=== PATIENT | male | born 1995 | race Caucasian/White ===

== ENCOUNTER 2017-06-05 18:00 | Emergency (ER) | payer BC ==
[2017-06-05 18:22] VITALS: BP 137/64
--- NOTE | 2017-06-05 19:26 | EDM.PDOC ---
ED HPI GENERAL MEDICAL PROBLEM - General Chief Complaint: Lower Extremity Injury/Pain Stated Complaint: L KNEE INJURY Time Seen by Provider: 06/05/17 18:40 Source of Information: Reports: Patient History Limitations: Reports: No Limitations - History of Present Illness INITIAL COMMENTS - FREE TEXT/NARRATIVE: 21-year-old male presents for evaluation andtreatment of left knee pain. Reports that this occurred around 0500 this morning. States that it was slippery and he fell. Assessment he fell down 15 steps and landed on his left knee. Does not recall hearing a sound such as popping or snapping. Since then he has been having pain with ambulation. Identifies pain behind the left patella. No history of any previous knee trauma. No head trauma or syncope. No headaches, neck pain, vision changes, nausea or vomiting. No other pains any other extremities. Left Knee Pain Score (Numeric/FACES): 8 - Related Data Allergies Allergy/AdvReac Type Severity Reaction Status Date / Time peaches Allergy Swelling Uncoded 06/05/17 18:18 Home Meds: Home Meds . 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 Denies: Neck Pain, Arm Pain, Back Pain, Leg Pain Skin: Denies: Bruising, Erythema, Wound Neurological: Denies: Headache, Numbness, Syncope, Tingling ED EXAM, GENERAL - Physical Exam Exam: See Below Exam Limited By: No Limitations General Appearance: Alert, WD/WN, No Apparent Distress Eye Exam: Bilateral Eye: Normal Inspection, PERRL Nose: Normal Inspection Throat/Mouth: Normal Inspection, Normal Lips, Normal Oropharynx, Normal Voice, No Airway Compromise Head: Atraumatic, Normocephalic Neck: Normal Inspection, Supple, Non-Tender, Full Range of Motion Respiratory/Chest: No Respiratory Distress, Lungs Clear, Normal Breath Sounds Cardiovascular: Normal Peripheral Pulses, Regular Rate, Rhythm, No Murmur Extremities: Normal Inspection, Normal Capillary Refill, Limited Range of Motion (unable to flex more than 90 degrees due to pain), Increased Warmth, Other (idenitifies pain behind the left patella; no tenderness to palpation, negative anterior drawer, posterior drawer, valgus and varus stress testing). No: Joint Swelling, Redness Neurological: Alert, Oriented, Normal Cognition, Normal Gait Psychiatric: Normal Affect, Normal Mood Skin Exam: Warm, Dry, Normal Color Course - Vital Signs Last Recorded V/S: Last Vital Signs Temp 36.1 C 06/05/17 18:19 Pulse 87 06/05/17 18:19 Resp 15 06/05/17 18:19 BP 137/64 06/05/17 18:19 Pulse Ox 98 06/05/17 18:19 - Radiology Interpretation Free Text/Narrative:: left knee xray reviewed by myself and DR. Wallace shows no acute fractures or dislocations - Re-Assessments/Exams Free Text/Narrative Re-Assessment/Exam: 06/05/17 20:25 I reviewed the x-ray results with the patient. Recommend ice, Richie bandage as needed for swelling, Tylenol and Motrin. I did offer him some crutches but he declined. Appears to be soft tissue injury. Instructed to follow-up with orthopedics if not much better. Discharge instructions as documented. Departure - Departure Time of Disposition: 20:27 Disposition: Home, Self-Care 01 Condition: Fair Clinical Impression: Knee contusion - Discharge Information Instructions: Contusion, [id number] Referrals: PCP,None [Primary Care Provider] - Reji Gifford MD [Physician] - Forms: ED Department Discharge Additional Instructions: Recommend using ice to the sore area. [id number] Tylenol Motrin seen for pain relief. Use an Richie bandage to the knee if you experience any swelling. Follow-up with orthopedics if your symptoms have not improved much within [address] Epstein at the [facility]. Call [phone] to schedule with him. Please return to the ER if your symptoms change or worsen.
--- NOTE | 2017-06-06 08:30 | CR ---
Left knee: Four views of the left knee were obtained. Comparison: No previous study. Medial and lateral joint spaces are maintained in height. No joint effusion is seen. No fracture or other bony abnormality is seen. Impression: 1. No abnormality is identified on left knee exam. Diagnostic code #1
== END 2017-06-05 20:35 | disposition home or self-care (01) ==
LOC: JD.ED 18:00
DX: S80.02XA Contusion of left knee, initial encounter (principal); F17.210 Nicotine dependence, cigarettes, uncomplicated; Z91.018 Allergy to other foods; W10.9XXA Fall (on) (from) unspecified stairs and steps, initial encounter
CPT/HCPCS: 73564-26-LT; 73564-LT; 99283

== ENCOUNTER 2017-06-08 14:28 | Inpatient (IN) | payer BC ==
[2017-06-08 15:44] LABS: ACETAMINOPHEN 0 ug/mL (10-30)
[2017-06-08] MEDS ORDERED: Acetylcysteine 20% 200 MG/ML 30 ML SDV IV ONE (15:46)
--- NOTE | 2017-06-08 15:58 | EDM.PDOC ---
ED HPI GENERAL MEDICAL PROBLEM - General Chief Complaint: Abdominal Pain Stated Complaint: ABDOMINAL PAIN Time Seen by Provider: 06/08/17 14:56 Source of Information: Reports: Patient History Limitations: Reports: No Limitations - History of Present Illness INITIAL COMMENTS - FREE TEXT/NARRATIVE: 21 y/o M with RUQ pain x 2-3 days. States it started gradually. Denies provoking factors. States he had been taking some tylenol for a leg injury but denies taking an excessive amount. States he was taking 1-2 tabs ever 6 hours. Denies any overdose. Denies IV drug use. Denies excessive ETOH use. No fever. No vomiting. Mild nausea. No cough/CP. No SOB. No hx similar symptoms previously. No additional complaint. Right Upper Abdominal Pain Score (Numeric/FACES): 4 - Related Data Allergies Allergy/AdvReac Type Severity Reaction Status Date / Time peaches Allergy Swelling Uncoded 06/08/17 14:43 Home Meds: Home Meds . 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 Denies: Fever HEENT: Reports: No Symptoms Respiratory: Denies: Shortness of Breath Cardiovascular: Denies: Chest Pain Endocrine: Reports: Fatigue GI/Abdominal: Reports: Abdominal Pain : Reports: No Symptoms Musculoskeletal: Reports: No Symptoms Skin: Reports: No Symptoms Neurological: Reports: No Symptoms Psychiatric: Reports: No Symptoms ED EXAM, GI/ABD - Physical Exam Exam: See Below Exam Limited By: No Limitations General Appearance: Alert, WD/WN, No Apparent Distress Eyes: Bilateral: Normal Appearance Ears: Normal External Exam Nose: Normal Inspection Throat/Mouth: Normal Inspection, Normal Oropharynx, Normal Voice Head: Atraumatic, Normocephalic Neck: Normal Inspection, Supple, Non-Tender, Full Range of Motion Respiratory/Chest: No Respiratory Distress, Lungs Clear, Normal Breath Sounds, Chest Non-Tender Cardiovascular: Normal Peripheral Pulses, Regular Rate, Rhythm, No Edema, No Murmur GI/Abdominal Exam: Normal Bowel Sounds, Soft, Other (+RUQ TTP , no rebound/ guarding) Back Exam: Normal Inspection Extremities: Normal Inspection Neurological: Alert, Oriented, Normal Cognition, No Motor/Sensory Deficits Psychiatric: Normal Affect, Normal Mood Skin Exam: Warm, Dry, Intact, Normal Color, No Rash Course - Vital Signs Last Recorded V/S: Last Vital Signs Temp 37.4 C 06/08/17 18:09 Pulse 106 H 06/08/17 18:09 Resp 16 06/08/17 18:09 BP 132/81 06/08/17 18:09 Pulse Ox 95 06/08/17 19:05 - Orders/Labs/Meds Orders: Active Orders 24 hr Category Date Time Status Height and Weight [RC] DAILY Care 06/08/17 17:32 Active Intake and Output [RC] 04,16 Care 06/08/17 17:32 Active Oxygen Therapy [RC] PRN Care 06/08/17 17:32 Active RT Aerosol Therapy [RC] ASDIRECTED Care 06/08/17 17:33 Active Up ad Eunice [RC] ASDIRECTED Care 06/08/17 17:32 Active VTE/DVT Education [RC] BID Care 06/08/17 17:32 Active Vital Signs [RC] Q4HR Care 06/08/17 17:32 Active Consult to Spiritual Care [CONS] Routine Cons 06/08/17 17:34 Active Regular Diet [DIET] Diet 06/08/17 Dinner Active C-REACTIVE PROTEIN [CHEM] AM Lab 06/09/17 05:11 Ordered C-REACTIVE PROTEIN [CHEM] AM Lab 06/10/17 05:11 Ordered C-REACTIVE PROTEIN [CHEM] AM Lab 06/11/17 05:11 Ordered CBC WITH AUTO DIFF [HEME] AM Lab 06/09/17 05:11 Ordered CBC WITH AUTO DIFF [HEME] AM Lab 06/10/17 05:11 Ordered COMPREHENSIVE METABOLIC PN,CMP [CHEM] AM Lab 06/09/17 05:11 Ordered COMPREHENSIVE METABOLIC PN,CMP [CHEM] AM Lab 06/10/17 05:11 Ordered COMPREHENSIVE METABOLIC PN,CMP [CHEM] AM Lab 06/11/17 05:11 Ordered DRUG SCREEN, URINE [URCHEM] Stat Lab 06/08/17 15:11 Ordered HEPATITIS PANEL, ACUTE [REF] Stat Lab 06/08/17 16:10 Received MAGNESIUM [CHEM] AM Lab 06/09/17 05:11 Ordered MAGNESIUM [CHEM] AM Lab 06/10/17 05:11 Ordered MAGNESIUM [CHEM] AM Lab 06/11/17 05:11 Ordered Albuterol/Ipratropium [DuoNeb 3.0-0.5 MG/3 ML] Med 06/08/17 17:32 Active 3 ml NEB Q4H PRN Bisacodyl [Dulcolax] Med 06/08/17 17:32 Active 5 mg PO DAILY PRN Docusate Sodium [Colace] Med 06/08/17 17:32 Active 100 mg PO BID PRN Docusate Sodium/Sennosides [Senna Plus] Med 06/08/17 17:32 Active 1 tab PO BID PRN HYDROmorphone [Dilaudid] Med 06/08/17 17:32 Active 0.25 mg IVPUSH Q2H PRN Ibuprofen [Motrin] Med 06/08/17 17:32 Active 600 mg PO Q6H PRN LORazepam [Ativan] Med 06/08/17 17:31 Active 2 mg IVPUSH Q4H PRN Magnesium Rep Pharmacy to Dose [Pharmacy to Dose - Med 06/08/17 17:45 Pending Magnesium Replacement] 1 dose .XX ASDIRECTED Metoprolol Tartrate [Lopressor] Med 06/08/17 17:31 Active 5 mg IVPUSH Q4H PRN Nicotine [Habitrol] Med 06/08/17 17:35 Active 21 mg TRDERM DAILY PRN Ondansetron [Zofran] Med 06/08/17 17:32 Active 4 mg IV Q6H PRN Polyethylene Glycol 3350 [MiraLAX] Med 06/08/17 17:32 Active 17 gm PO DAILY PRN Potassium Rep Pharmacy to Dose [Pharmacy to Dose - Med 06/08/17 17:45 Pending Potassium Replacement] 1 dose .XX ASDIRECTED Promethazine [Phenergan] 12.5 mg Med 06/08/17 17:32 Active Sodium Chloride 0.9% [Normal Saline] 50 ml IV Q6H Sodium Chloride 0.9% [Normal Saline] 1,000 ml Med 06/08/17 17:45 Active IV ASDIRECTED Temazepam [Restoril] Med 06/08/17 17:32 Active 15 mg PO BEDTIME PRN hydrALAZINE [Apresoline] Med 06/08/17 17:31 Active 20 mg IVPUSH Q4H PRN oxyCODONE Med 06/08/17 17:32 Active 10 mg PO Q4H PRN Sequential Compression Device [OM.PC] Per Unit Routine Oth 06/08/17 17:32 Ordered Resuscitation Status Routine Resus Stat 06/08/17 17:32 Ordered Medication Orders Albuterol/Ipratropium (Duoneb 3.0-0.5 Mg/3 Ml) 3 ml NEB Q4H PRN PRN Reason: Shortness Of Breath/wheezing Bisacodyl (Dulcolax) 5 mg PO DAILY PRN PRN Reason: Constipation Docusate Sodium (Colace) 100 mg PO BID PRN PRN Reason: Constipation Hydralazine HCl (Apresoline) 20 mg IVPUSH Q4H PRN PRN Reason: Hypertension Hydromorphone HCl (Dilaudid) 0.25 mg IVPUSH Q2H PRN PRN Reason: Pain (severe 7-10) Promethazine HCl 12.5 mg/ (Sodium Chloride) 50.5 mls @ 100 mls/hr IV Q6H PRN PRN Reason: Nausea/Vomiting Sodium Chloride (Normal Saline) 1,000 mls @ 125 mls/hr IV ASDIRECTED [facility] Ibuprofen (Motrin) 600 mg PO Q6H PRN PRN Reason: Pain (moderate 4-6) Lorazepam (Ativan) 2 mg IVPUSH Q4H PRN PRN Reason: Seizures Magnesium Sulfate (Pharmacy To Dose - Magnesium Replacement) 1 dose .XX ASDIRECTED FOR[facility] Metoprolol Tartrate (Lopressor) 5 mg IVPUSH Q4H PRN PRN Reason: Tachycardia Miscellaneous Information (Remove Patch) 1 ea TRDERM DAILY PRN PRN Reason: Other Nicotine (Habitrol) 21 mg TRDERM DAILY PRN PRN Reason: Nicotine Ondansetron HCl (Zofran) 4 mg IV Q6H PRN PRN Reason: Nausea/Vomiting Oxycodone HCl (Oxycodone) 10 mg PO Q4H PRN PRN Reason: Pain (moderate 4-6) Polyethylene Glycol (Miralax) 17 gm PO DAILY PRN PRN Reason: Constipation Potassium Chloride (Pharmacy To Dose - Potassium Replacement) 1 dose .XX ASDIRECTED KLAUDIA Senna/Docusate Sodium (Senna Plus) 1 tab PO BID PRN PRN Reason: Constipation Temazepam (Restoril) 15 mg PO BEDTIME PRN PRN Reason: Sleep Labs: Laboratory Tests 06/08/17 06/08/17 06/08/17 Range/Units 15:11 15:11 15:11 WBC 11.49 H (4.23-9.07) K/mm3 RBC 5.82 (4.63-6.08) M/mm3 Hgb 17.8 H (13.7-17.5) gm/L Hct 52.3 H (40.1-51.0) % MCV 89.9 (79.0-92.2) fl MCH 30.6 (25.7-32.2) pg MCHC 34.0 (32.2-35.5) g/dl RDW Std Deviation 46.1 H (35.1-43.9) fL Plt Count 286 (163-337) K/mm3 MPV 10.3 (9.4-12.3) fl Neut % (Auto) 80.8 H (34.0-67.9) % Lymph % (Auto) 8.5 L (21.8-53.1) % [place] % (Auto) 9.2 (5.3-12.2) % Eos % (Auto) 0.8 (0.8-7.0) Baso % (Auto) 0.4 (0.1-1.2) % Neut # (Auto) 9.28 H (1.78-5.38) K/mm3 Lymph # (Auto) 0.98 L (1.32-3.57) K/mm3 [place] # (Auto) 1.06 H (0.30-0.82) K/mm3 Eos # (Auto) 0.09 (0.04-0.54) K/mm3 Baso # (Auto) 0.05 (0.01-0.08) K/mm3 Manual Slide Review Normal smear PT (8.0-13.0) SECONDS INR Sodium 136 (136-145) mEq/L Potassium 4.2 (3.5-5.1) mEq/L Chloride 99 (98-107) mEq/L Carbon Dioxide 26 (21-32) mEq/L Anion Gap 15.2 H (5-15) BUN 5 L (7-18) mg/dL Creatinine 0.9 (0.7-1.3) mg/dL Est Cr Clr Drug Dosing 142.51 mL/min Estimated GFR (MDRD) > 60 (>60) mL/min BUN/Creatinine Ratio 5.6 L (14-18) Glucose 110 H (74-106) mg/dL Calcium 9.3 (8.5-10.1) mg/dL Total Bilirubin 2.4 H (0.2-1.0) mg/dL GGT (15-85) U/L AST 1974 H (15-37) U/L ALT 1959 H (16-63) U/L Alkaline Phosphatase 111 (46-116) U/L Total Protein 7.7 (6.4-8.2) g/dl Albumin 4.2 (3.4-5.0) g/dl Globulin 3.5 gm/dL Albumin/Globulin Ratio 1.2 (1-2) Lipase 56 L (73-393) U/L Urine Color (Yellow) Urine Appearance (Clear) Urine pH (5.0-8.0) Ur Specific [place] (1.005-1.030) Urine Protein (Negative) Urine Glucose (UA) (Negative) Urine Ketones (Negative) Urine Occult Blood (Negative) Urine Nitrite (Negative) Urine Bilirubin (Negative) Urine Urobilinogen (0.2-1.0) Ur Leukocyte Esterase (Negative) Urine RBC (0-5) /hpf Urine WBC (0-5) /hpf Ur Epithelial Cells (0-5) /hpf Urine Bacteria (FEW) /hpf Urine Mucus (FEW) /hpf Salicylates < 0.2 L (2.8-20) mg/dL Urine Opiates Screen (NEGATIVE) Ur Buprenorphine Scrn (NEGATIVE) Ur Oxycodone Screen (NEGATIVE) Urine Methadone Screen (NEGATIVE) Ur Propoxyphene Screen (NEGATIVE) Acetaminophen 0 L (10-30) ug/mL Ur Barbiturates Screen (NEGATIVE) Ur Tricyclics Screen (NEGATIVE) Ur Phencyclidine Scrn (NEGATIVE) Ur Amphetamine Screen (NEGATIVE) U Methamphetamines Scrn (NEGATIVE) U Benzodiazepines Scrn (NEGATIVE) U Cocaine Metab Screen (NEGATIVE) U Marijuana (THC) Screen (NEGATIVE) Ethyl Alcohol (0.00) gm% 06/08/17 06/08/17 06/08/17 Range/Units 15:11 15:11 15:11 WBC (4.23-9.07) K/mm3 RBC (4.63-6.08) M/mm3 Hgb (13.7-17.5) gm/L Hct (40.1-51.0) % MCV (79.0-92.2) fl MCH (25.7-32.2) pg MCHC (32.2-35.5) g/dl RDW Std Deviation (35.1-43.9) fL Plt Count (163-337) K/mm3 MPV (9.4-12.3) fl Neut % (Auto) (34.0-67.9) % Lymph % (Auto) (21.8-53.1) % [place] % (Auto) (5.3-12.2) % Eos % (Auto) (0.8-7.0) Baso % (Auto) (0.1-1.2) % Neut # (Auto) (1.78-5.38) K/mm3 Lymph # (Auto) (1.32-3.57) K/mm3 [place] # (Auto) (0.30-0.82) K/mm3 Eos # (Auto) (0.04-0.54) K/mm3 Baso # (Auto) (0.01-0.08) K/mm3 Manual Slide Review PT (8.0-13.0) SECONDS INR Sodium (136-145) mEq/L Potassium (3.5-5.1) mEq/L Chloride (98-107) mEq/L Carbon Dioxide (21-32) mEq/L Anion Gap (5-15) BUN (7-18) mg/dL Creatinine (0.7-1.3) mg/dL Est Cr Clr Drug Dosing mL/min Estimated GFR (MDRD) (>60) mL/min BUN/Creatinine Ratio (14-18) Glucose (74-106) mg/dL Calcium (8.5-10.1) mg/dL Total Bilirubin (0.2-1.0) mg/dL GGT (15-85) U/L AST (15-37) U/L ALT (16-63) U/L Alkaline Phosphatase (46-116) U/L Total Protein (6.4-8.2) g/dl Albumin (3.4-5.0) g/dl Globulin gm/dL Albumin/Globulin Ratio (1-2) Lipase (73-393) U/L Urine Color Dark yellow (Yellow) Urine Appearance Clear (Clear) Urine pH 6.5 (5.0-8.0) Ur Specific [place] > or = 1.030 (1.005-1.030) Urine Protein 2+ H (Negative) Urine Glucose (UA) Negative (Negative) Urine Ketones Negative (Negative) Urine Occult Blood Trace-lysed H (Negative) Urine Nitrite Negative (Negative) Urine Bilirubin 1+ H (Negative) Urine Urobilinogen 4.0 H (0.2-1.0) Ur Leukocyte Esterase Negative (Negative) Urine RBC 0-5 (0-5) /hpf Urine WBC 5-10 H (0-5) /hpf Ur Epithelial Cells 5-10 H (0-5) /hpf Urine Bacteria Few (FEW) /hpf Urine Mucus Many H (FEW) /hpf Salicylates (2.8-20) mg/dL Urine Opiates Screen Negative (NEGATIVE) Ur Buprenorphine Scrn Negative (NEGATIVE) Ur Oxycodone Screen Negative (NEGATIVE) Urine Methadone Screen Negative (NEGATIVE) Ur Propoxyphene Screen Negative (NEGATIVE) Acetaminophen (10-30) ug/mL Ur Barbiturates Screen Negative (NEGATIVE) Ur Tricyclics Screen Negative (NEGATIVE) Ur Phencyclidine Scrn Negative (NEGATIVE) Ur Amphetamine Screen Negative (NEGATIVE) U Methamphetamines Scrn Negative (NEGATIVE) U Benzodiazepines Scrn Presumptive positive H (NEGATIVE) U Cocaine Metab Screen Negative (NEGATIVE) U Marijuana (THC) Screen Negative (NEGATIVE) Ethyl Alcohol 0.00 (0.00) gm% 06/08/17 06/08/17 Range/Units 16:10 17:15 WBC (4.23-9.07) K/mm3 RBC (4.63-6.08) M/mm3 Hgb (13.7-17.5) gm/L Hct (40.1-51.0) % MCV (79.0-92.2) fl MCH (25.7-32.2) pg MCHC (32.2-35.5) g/dl RDW Std Deviation (35.1-43.9) fL Plt Count (163-337) K/mm3 MPV (9.4-12.3) fl Neut % (Auto) (34.0-67.9) % Lymph % (Auto) (21.8-53.1) % [place] % (Auto) (5.3-12.2) % Eos % (Auto) (0.8-7.0) Baso % (Auto) (0.1-1.2) % Neut # (Auto) (1.78-5.38) K/mm3 Lymph # (Auto) (1.32-3.57) K/mm3 [place] # (Auto) (0.30-0.82) K/mm3 Eos # (Auto) (0.04-0.54) K/mm3 Baso # (Auto) (0.01-0.08) K/mm3 Manual Slide Review PT 13.6 H (8.0-13.0) SECONDS INR 1.27 Sodium (136-145) mEq/L Potassium (3.5-5.1) mEq/L Chloride (98-107) mEq/L Carbon Dioxide (21-32) mEq/L Anion Gap (5-15) BUN (7-18) mg/dL Creatinine (0.7-1.3) mg/dL Est Cr Clr Drug Dosing mL/min Estimated GFR (MDRD) (>60) mL/min BUN/Creatinine Ratio (14-18) Glucose (74-106) mg/dL Calcium (8.5-10.1) mg/dL Total Bilirubin (0.2-1.0) mg/dL GGT 65 (15-85) U/L AST (15-37) U/L ALT (16-63) U/L Alkaline Phosphatase (46-116) U/L Total Protein (6.4-8.2) g/dl Albumin (3.4-5.0) g/dl Globulin gm/dL Albumin/Globulin Ratio (1-2) Lipase (73-393) U/L Urine Color (Yellow) Urine Appearance (Clear) Urine pH (5.0-8.0) Ur Specific [place] (1.005-1.030) Urine Protein (Negative) Urine Glucose (UA) (Negative) Urine Ketones (Negative) Urine Occult Blood (Negative) Urine Nitrite (Negative) Urine Bilirubin (Negative) Urine Urobilinogen (0.2-1.0) Ur Leukocyte Esterase (Negative) Urine RBC (0-5) /hpf Urine WBC (0-5) /hpf Ur Epithelial Cells (0-5) /hpf Urine Bacteria (FEW) /hpf Urine Mucus (FEW) /hpf Salicylates (2.8-20) mg/dL Urine Opiates Screen (NEGATIVE) Ur Buprenorphine Scrn (NEGATIVE) Ur Oxycodone Screen (NEGATIVE) Urine Methadone Screen (NEGATIVE) Ur Propoxyphene Screen (NEGATIVE) Acetaminophen (10-30) ug/mL Ur Barbiturates Screen (NEGATIVE) Ur Tricyclics Screen (NEGATIVE) Ur Phencyclidine Scrn (NEGATIVE) Ur Amphetamine Screen (NEGATIVE) U Methamphetamines Scrn (NEGATIVE) U Benzodiazepines Scrn (NEGATIVE) U Cocaine Metab Screen (NEGATIVE) U Marijuana (THC) Screen (NEGATIVE) Ethyl Alcohol (0.00) gm% Meds: Medications Generic Name Dose Route Start Last Admin Trade Name Freq PRN Reason Stop Dose Admin Albuterol/Ipratropium 3 ml 06/08/17 17:32 Duoneb 3.0-0.5 Mg/3 Ml NEB Q4H PRN Shortness Of Breath/wheezing Bisacodyl 5 mg 06/08/17 17:32 Dulcolax PO DAILY PRN Constipation Docusate Sodium 100 mg 06/08/17 17:32 Colace PO BID PRN Constipation Hydralazine HCl 20 mg 06/08/17 17:31 Apresoline IVPUSH Q4H PRN Hypertension Hydromorphone HCl 0.25 mg 06/08/17 17:32 Dilaudid IVPUSH Q2H PRN Pain (severe 7-10) Promethazine HCl 12.5 mg/ 50.5 mls @ 100 mls/hr 06/08/17 17:32 Sodium Chloride IV Q6H PRN Nausea/Vomiting Sodium Chloride 1,000 mls @ 125 mls/hr 06/08/17 17:45 Normal Saline IV ASDIRECTED KLAUDIA Ibuprofen 600 mg 06/08/17 17:32 Motrin PO Q6H PRN Pain (moderate 4-6) Lorazepam 2 mg 06/08/17 17:31 Ativan IVPUSH Q4H PRN Seizures Magnesium Sulfate 1 dose 06/08/17 17:45 Pharmacy To Dose - Magnesium Replacement .XX ASDIRECTED FOR[facility]LY [facility] Metoprolol Tartrate 5 mg 06/08/17 17:31 Lopressor IVPUSH Q4H PRN Tachycardia Miscellaneous Information 1 ea 06/08/17 17:43 Remove Patch TRDERM DAILY PRN Other Nicotine 21 mg 06/08/17 17:35 Habitrol TRDERM DAILY PRN Nicotine Ondansetron HCl 4 mg 06/08/17 17:32 Zofran IV Q6H PRN Nausea/Vomiting Oxycodone HCl 10 mg 06/08/17 17:32 Oxycodone PO Q4H PRN Pain (moderate 4-6) Polyethylene Glycol 17 gm 06/08/17 17:32 Miralax PO DAILY PRN Constipation Potassium Chloride 1 dose 06/08/17 17:45 Pharmacy To Dose - Potassium Replacement .XX ASDIRECTED FOR[facility] Senna/Docusate Sodium 1 tab 06/08/17 17:32 Senna Plus PO BID PRN Constipation Temazepam 15 mg 06/08/17 17:32 Restoril PO BEDTIME PRN Sleep Discontinued Medications Generic Name Dose Route Start Last Admin Trade Name Freq PRN Reason Stop Dose Admin Acetylcysteine 12,240 mg/ 161.2 mls @ 161 mls/hr 06/08/17 16:00 Dextrose/Water IV 06/08/17 17:00 ONETIME ONE Pantoprazole Sodium 40 mg 06/08/17 17:32 Protonix Iv IVPUSH 06/08/17 17:33 ONETIME ONE - Re-Assessments/Exams Free Text/Narrative Re-Assessment/Exam: 06/08/17 19:31 Labs consistent with acute hepatitis, source unclear. viral studies sent. Discussed with Dr. Edmonds who agrees to admit the patient for further care. Departure - Departure Time of Disposition: 17:50 Disposition: Admitted As Inpatient 66 Clinical Impression: Acute hepatitis - Discharge Information - My Orders Last 24 Hours: My Active Orders 06/08/17 15:11 DRUG SCREEN, URINE [URCHEM] Stat 06/08/17 16:10 HEPATITIS PANEL, ACUTE [REF] Stat - Assessment/Plan Last 24 Hours: My Active Orders 06/08/17 15:11 DRUG SCREEN, URINE [URCHEM] Stat 06/08/17 16:10 HEPATITIS PANEL, ACUTE [REF] Stat
[2017-06-08] MEDS ORDERED: WATER IV ONE ×2 (16:00)
[2017-06-08] MEDS ORDERED: ACETYLCYSTEINE IV ONE ×2 (16:00)
[2017-06-08] MEDS ORDERED: DEXTROSE 5% IV ONE ×2 (16:00)
--- NOTE | 2017-06-08 16:41 | US ---
Limited abdominal ultrasound: Multiple real-time images of the right upper abdomen were obtained. Comparison: No previous abdominal imaging. Liver shows no focal parenchymal abnormality. Right kidney shows no hydronephrosis or mass and has a length of 11.0 cm. Pancreas appears within normal limits. Gallbladder contains no gallstones. No gallbladder wall thickening or biliary duct dilatation is seen. Inferior vena cava is patent. Portal vein shows normal hepatopedal flow. Impression: 1. No abnormality is identified on right upper quadrant abdominal ultrasound exam. Diagnostic code #1
[2017-06-08] MEDS ORDERED: LORazepam 2 MG/ML SDV IVPUSH PRN (17:31)
[2017-06-08] MEDS ORDERED: Metoprolol Tartrate 5 MG/5 ML SDV IVPUSH PRN (17:31)
[2017-06-08] MEDS ORDERED: hydrALAZINE 20 MG/ML SDV IVPUSH PRN (17:31)
[2017-06-08] MEDS ORDERED: Ibuprofen 600 MG Tab PO PRN (17:32)
[2017-06-08] MEDS ORDERED: Ondansetron 4 MG/2 ML SDV IV PRN (17:32)
[2017-06-08] MEDS ORDERED: Albuterol/Ipratropium 3.0-0.5 MG/3 ML Neb Soln NEB PRN (17:32)
[2017-06-08] MEDS ORDERED: Bisacodyl 5 MG Tab PO PRN (17:32)
[2017-06-08] MEDS ORDERED: Polyethylene Glycol 3350 Powder 17 GM Packet PO PRN (17:32)
[2017-06-08] MEDS ORDERED: HYDROmorphone 0.5 MG/0.5 ML SYRINGE IVPUSH PRN (17:32)
[2017-06-08] MEDS ORDERED: Promethazine 12.5 MG in Sodium Chloride 0.9% 50 ML IV PRN (17:32)
[2017-06-08] MEDS ORDERED: Temazepam 15 MG Cap PO PRN (17:32)
[2017-06-08] MEDS ORDERED: Docusate Sodium 100 MG Cap PO PRN (17:32)
[2017-06-08] MEDS ORDERED: Pantoprazole 40 MG Vial IVPUSH ONE ×2 (17:32→20:00)
--- NOTE | 2017-06-08 17:39 | PCM.HP ---
H&P History of Present Illness - General Date of Service: 06/08/17 Admit Problem/Dx: Acute Hepatitis Source of Information: Patient, Family, Provider, RN Notes Reviewed History Limitations: Reports: No Limitations - History of Present Illness Initial Comments - Free Text/Narative: This is a 21 yo healthy white male who comes in with complaints of abdominal and was found to have considerably elevated liver enzymes. Patient denies any hx /o trauma, surgery, blood infusion or intravenous drug use. He however admits to having been incarcerated in [place]. Patient repost a hx/o a recent fall suffering left knee abrasion and a small size lesion on his inter-gluteal cleft. Since then he has been taking a good amount of tylenol daily for 3-4 days for pain control. On top it, he is also drinking hard liquor. His initial work up in ED shows a CBC remarkable for WBC of 11.49, Hgb of 17.8, Hct of 52.3, RDW of 46.1, Neutrophils of 60.8%, and Lymphocytes of 8.5%. His coagulation studies show PT of 13.6 and INR of 1.27. His chemistry is remarkable for AG of 15.2, BUN of 5, BS of 110, Total bili of 2.4, AST of 1974, ALT 1959 and Lipase of 56. His UA is suggestive of dehydration with Specific gravity of > or = 1.030, +2 Protein and Urobilinogen of 4.0. His UDS is pos for benzodiazepines. Patient is being admitted for medical management of acute hepatitis. Right Upper Abdominal Pain Score (Numeric/FACES): 4 - Related Data Allergies/Adverse Reactions: Allergies Allergy/AdvReac Type Severity Reaction Status Date / Time peaches Allergy Swelling Uncoded 06/08/17 14:43 Home Medications: Home Meds . [No Known Home Meds] 06/05/17 [History] Past Medical History - Past Health History Medical/Surgical History: Denies Medical/Surgical History Psychiatric History: Reports: Depression - Past Surgical History Musculoskeletal Surgical History: Reports: Other (See Below) Social & Family History - Tobacco Use Smoking Status *Q: Current Every Day Smoker Years of Tobacco use: 5 Packs/Tins Daily: 0.5 - Recreational Drug Use Recreational Drug Use: No Drug Use in Last 12 Months: Yes Recreational Drug Type: Reports: Heroin, Marijuana/Hashish Recreational Drug Use Frequency: Daily Recreational Drug Last Use: 05/26/15 H&P Review of Systems - Review of Systems: Review Of Systems: See Below General: Denies: Fever, Chills, Malaise, Weakness, Fatigue, Night Sweats, Decreased Appetite, Weight Loss HEENT: Reports: No Symptoms Pulmonary: Denies: Shortness of Breath, Wheezing, Pleuritic Chest Pain, Cough, Sputum, Hemoptysis Cardiovascular: Denies: Chest Pain, Dyspnea on Exertion, Lightheadedness, Claudication Gastrointestinal: Denies: Abdominal Pain, Anorexia, Black Stool, Bloody Stool, Constipation, Diarrhea, Decreased Appetite, Difficulty Swallowing, Distension, Flatus, Hematemesis, Hematochezia, Melena, Nausea, Stool Incontinence, Vomiting Musculoskeletal: Reports: No Symptoms. Denies: Muscle Stiffness Skin: Reports: Wound (small size on intergluteal cleft), Other (abrasion on left knee). Denies: Cyanosis, Jaundice, Dryness, Erythema Psychiatric: Denies: Depression, Anxiety, Agitation, Hallucinations, Homicidal Ideation Neurological: Denies: Confusion, Pre-Existing Deficit, Difficulty Walking, Weakness, Gait Disturbance Hematologic/Lymphatic: Reports: No Symptoms Immunologic: Reports: No Symptoms Exam - Exam Exam: See Below - Vital Signs Vital Signs: Last Vital Signs Temp 37.6 C 06/08/17 14:39 Pulse 83 06/08/17 14:39 Resp 17 06/08/17 14:39 BP 131/77 06/08/17 14:39 Pulse Ox 96 06/08/17 14:39 Weight: 81.647 kg - Exam General: Alert, Oriented, Cooperative, Mild Distress HEENT: Conjunctiva Clear, EACs Clear, EOMI, Hearing Intact, Mucosa Moist & [place] , Nares Patent, Normal Nasal Septum, Posterior Pharynx Clear, Pupils Equal, Pupils Reactive Neck: Supple, Trachea Midline Lungs: Clear to Auscultation, Normal Respiratory Effort Cardiovascular: Regular Rate, Regular Rhythm GI/Abdominal Exam: Normal Bowel Sounds, Soft, No Organomegaly, No Distention, No Abnormal Bruit, Tender (mild at right upper quadrant). No: No Mass, Pelvis Stable, Guarding, Rigid, Rebound (Male) Exam: Deferred Rectal (Males) Exam: Deferred Back Exam: Normal Inspection, Full Range of Motion Extremities: Normal Inspection, Normal Range of Motion, Non-Tender, No Pedal Edema, Normal Capillary Refill Peripheral Pulses: 3+: Posterior Tibial (L), Posterior Tibial (R), Dorsalis Pedis (L), Dorsalis Pedis (R) Skin: Warm, Intact, Wound (minute size lesion on upper right buttock ( intergluteal cleft)), Other (multiple tattoos all over his body) Neuro Extensive - Mental Status: Oriented x3, Normal Cognition, Memory Intact Neuro Extensive - Motor, Sensory, Reflexes: CN II-XII Intact, Abnormal Gait Psychiatric: Alert, Normal Affect, Normal Mood - Patient Data Lab Results Last 24 hrs: Laboratory Results - last 24 hr 06/08/17 06/08/17 06/08/17 Range/Units 15:11 15:11 15:11 WBC 11.49 H (4.23-9.07) K/mm3 RBC 5.82 (4.63-6.08) M/mm3 Hgb 17.8 H (13.7-17.5) gm/L Hct 52.3 H (40.1-51.0) % MCV 89.9 (79.0-92.2) fl MCH 30.6 (25.7-32.2) pg MCHC 34.0 (32.2-35.5) g/dl RDW Std Deviation 46.1 H (35.1-43.9) fL Plt Count 286 (163-337) K/mm3 MPV 10.3 (9.4-12.3) fl Neut % (Auto) 80.8 H (34.0-67.9) % Lymph % (Auto) 8.5 L (21.8-53.1) % [place] % (Auto) 9.2 (5.3-12.2) % Eos % (Auto) 0.8 (0.8-7.0) Baso % (Auto) 0.4 (0.1-1.2) % Neut # (Auto) 9.28 H (1.78-5.38) K/mm3 Lymph # (Auto) 0.98 L (1.32-3.57) K/mm3 [place] # (Auto) 1.06 H (0.30-0.82) K/mm3 Eos # (Auto) 0.09 (0.04-0.54) K/mm3 Baso # (Auto) 0.05 (0.01-0.08) K/mm3 Manual Slide Review Normal smear PT (8.0-13.0) SECONDS INR Sodium 136 (136-145) mEq/L Potassium 4.2 (3.5-5.1) mEq/L Chloride 99 (98-107) mEq/L Carbon Dioxide 26 (21-32) mEq/L Anion Gap 15.2 H (5-15) BUN 5 L (7-18) mg/dL Creatinine 0.9 (0.7-1.3) mg/dL Est Cr Clr Drug Dosing 142.51 mL/min Estimated GFR (MDRD) > 60 (>60) mL/min BUN/Creatinine Ratio 5.6 L (14-18) Glucose 110 H (74-106) mg/dL Calcium 9.3 (8.5-10.1) mg/dL Total Bilirubin 2.4 H (0.2-1.0) mg/dL AST 1974 H (15-37) U/L ALT 1959 H (16-63) U/L Alkaline Phosphatase 111 (46-116) U/L Total Protein 7.7 (6.4-8.2) g/dl Albumin 4.2 (3.4-5.0) g/dl Globulin 3.5 gm/dL Albumin/Globulin Ratio 1.2 (1-2) Lipase 56 L (73-393) U/L Urine Color (Yellow) Urine Appearance (Clear) Urine pH (5.0-8.0) Ur Specific [place] (1.005-1.030) Urine Protein (Negative) Urine Glucose (UA) (Negative) Urine Ketones (Negative) Urine Occult Blood (Negative) Urine Nitrite (Negative) Urine Bilirubin (Negative) Urine Urobilinogen (0.2-1.0) Ur Leukocyte Esterase (Negative) Urine RBC (0-5) /hpf Urine WBC (0-5) /hpf Ur Epithelial Cells (0-5) /hpf Urine Bacteria (FEW) /hpf Urine Mucus (FEW) /hpf Salicylates < 0.2 L (2.8-20) mg/dL Urine Opiates Screen (NEGATIVE) Ur Buprenorphine Scrn (NEGATIVE) Ur Oxycodone Screen (NEGATIVE) Urine Methadone Screen (NEGATIVE) Ur Propoxyphene Screen (NEGATIVE) Acetaminophen 0 L (10-30) ug/mL Ur Barbiturates Screen (NEGATIVE) Ur Tricyclics Screen (NEGATIVE) Ur Phencyclidine Scrn (NEGATIVE) Ur Amphetamine Screen (NEGATIVE) U Methamphetamines Scrn (NEGATIVE) U Benzodiazepines Scrn (NEGATIVE) U Cocaine Metab Screen (NEGATIVE) U Marijuana (THC) Screen (NEGATIVE) Ethyl Alcohol (0.00) gm% 06/08/17 06/08/17 06/08/17 Range/Units 15:11 15:11 15:11 WBC (4.23-9.07) K/mm3 RBC (4.63-6.08) M/mm3 Hgb (13.7-17.5) gm/L Hct (40.1-51.0) % MCV (79.0-92.2) fl MCH (25.7-32.2) pg MCHC (32.2-35.5) g/dl RDW Std Deviation (35.1-43.9) fL Plt Count (163-337) K/mm3 MPV (9.4-12.3) fl Neut % (Auto) (34.0-67.9) % Lymph % (Auto) (21.8-53.1) % [place] % (Auto) (5.3-12.2) % Eos % (Auto) (0.8-7.0) Baso % (Auto) (0.1-1.2) % Neut # (Auto) (1.78-5.38) K/mm3 Lymph # (Auto) (1.32-3.57) K/mm3 [place] # (Auto) (0.30-0.82) K/mm3 Eos # (Auto) (0.04-0.54) K/mm3 Baso # (Auto) (0.01-0.08) K/mm3 Manual Slide Review PT (8.0-13.0) SECONDS INR Sodium (136-145) mEq/L Potassium (3.5-5.1) mEq/L Chloride (98-107) mEq/L Carbon Dioxide (21-32) mEq/L Anion Gap (5-15) BUN (7-18) mg/dL Creatinine (0.7-1.3) mg/dL Est Cr Clr Drug Dosing mL/min Estimated GFR (MDRD) (>60) mL/min BUN/Creatinine Ratio (14-18) Glucose (74-106) mg/dL Calcium (8.5-10.1) mg/dL Total Bilirubin (0.2-1.0) mg/dL AST (15-37) U/L ALT (16-63) U/L Alkaline Phosphatase (46-116) U/L Total Protein (6.4-8.2) g/dl Albumin (3.4-5.0) g/dl Globulin gm/dL Albumin/Globulin Ratio (1-2) Lipase (73-393) U/L Urine Color Dark yellow (Yellow) Urine Appearance Clear (Clear) Urine pH 6.5 (5.0-8.0) Ur Specific [place] > or = 1.030 (1.005-1.030) Urine Protein 2+ H (Negative) Urine Glucose (UA) Negative (Negative) Urine Ketones Negative (Negative) Urine Occult Blood Trace-lysed H (Negative) Urine Nitrite Negative (Negative) Urine Bilirubin 1+ H (Negative) Urine Urobilinogen 4.0 H (0.2-1.0) Ur Leukocyte Esterase Negative (Negative) Urine RBC 0-5 (0-5) /hpf Urine WBC 5-10 H (0-5) /hpf Ur Epithelial Cells 5-10 H (0-5) /hpf Urine Bacteria Few (FEW) /hpf Urine Mucus Many H (FEW) /hpf Salicylates (2.8-20) mg/dL Urine Opiates Screen Negative (NEGATIVE) Ur Buprenorphine Scrn Negative (NEGATIVE) Ur Oxycodone Screen Negative (NEGATIVE) Urine Methadone Screen Negative (NEGATIVE) Ur Propoxyphene Screen Negative (NEGATIVE) Acetaminophen (10-30) ug/mL Ur Barbiturates Screen Negative (NEGATIVE) Ur Tricyclics Screen Negative (NEGATIVE) Ur Phencyclidine Scrn Negative (NEGATIVE) Ur Amphetamine Screen Negative (NEGATIVE) U Methamphetamines Scrn Negative (NEGATIVE) U Benzodiazepines Scrn Presumptive positive H (NEGATIVE) U Cocaine Metab Screen Negative (NEGATIVE) U Marijuana (THC) Screen Negative (NEGATIVE) Ethyl Alcohol 0.00 (0.00) gm% 06/08/17 Range/Units 16:10 WBC (4.23-9.07) K/mm3 RBC (4.63-6.08) M/mm3 Hgb (13.7-17.5) gm/L Hct (40.1-51.0) % MCV (79.0-92.2) fl MCH (25.7-32.2) pg MCHC (32.2-35.5) g/dl RDW Std Deviation (35.1-43.9) fL Plt Count (163-337) K/mm3 MPV (9.4-12.3) fl Neut % (Auto) (34.0-67.9) % Lymph % (Auto) (21.8-53.1) % [place] % (Auto) (5.3-12.2) % Eos % (Auto) (0.8-7.0) Baso % (Auto) (0.1-1.2) % Neut # (Auto) (1.78-5.38) K/mm3 Lymph # (Auto) (1.32-3.57) K/mm3 [place] # (Auto) (0.30-0.82) K/mm3 Eos # (Auto) (0.04-0.54) K/mm3 Baso # (Auto) (0.01-0.08) K/mm3 Manual Slide Review PT 13.6 H (8.0-13.0) SECONDS INR 1.27 Sodium (136-145) mEq/L Potassium (3.5-5.1) mEq/L Chloride (98-107) mEq/L Carbon Dioxide (21-32) mEq/L Anion Gap (5-15) BUN (7-18) mg/dL Creatinine (0.7-1.3) mg/dL Est Cr Clr Drug Dosing mL/min Estimated GFR (MDRD) (>60) mL/min BUN/Creatinine Ratio (14-18) Glucose (74-106) mg/dL Calcium (8.5-10.1) mg/dL Total Bilirubin (0.2-1.0) mg/dL AST (15-37) U/L ALT (16-63) U/L Alkaline Phosphatase (46-116) U/L Total Protein (6.4-8.2) g/dl Albumin (3.4-5.0) g/dl Globulin gm/dL Albumin/Globulin Ratio (1-2) Lipase (73-393) U/L Urine Color (Yellow) Urine Appearance (Clear) Urine pH (5.0-8.0) Ur Specific [place] (1.005-1.030) Urine Protein (Negative) Urine Glucose (UA) (Negative) Urine Ketones (Negative) Urine Occult Blood (Negative) Urine Nitrite (Negative) Urine Bilirubin (Negative) Urine Urobilinogen (0.2-1.0) Ur Leukocyte Esterase (Negative) Urine RBC (0-5) /hpf Urine WBC (0-5) /hpf Ur Epithelial Cells (0-5) /hpf Urine Bacteria (FEW) /hpf Urine Mucus (FEW) /hpf Salicylates (2.8-20) mg/dL Urine Opiates Screen (NEGATIVE) Ur Buprenorphine Scrn (NEGATIVE) Ur Oxycodone Screen (NEGATIVE) Urine Methadone Screen (NEGATIVE) Ur Propoxyphene Screen (NEGATIVE) Acetaminophen (10-30) ug/mL Ur Barbiturates Screen (NEGATIVE) Ur Tricyclics Screen (NEGATIVE) Ur Phencyclidine Scrn (NEGATIVE) Ur Amphetamine Screen (NEGATIVE) U Methamphetamines Scrn (NEGATIVE) U Benzodiazepines Scrn (NEGATIVE) U Cocaine Metab Screen (NEGATIVE) U Marijuana (THC) Screen (NEGATIVE) Ethyl Alcohol (0.00) gm% Result Diagrams: 06/08/17 15:11 06/08/17 15:11 Problem List Initiated/Reviewed/Updated: Yes Orders Last 24hrs: Active Orders 24 hr Category Date Time Status Height and Weight [RC] DAILY Care 06/08/17 17:32 Ordered Intake and Output [RC] QSHIFT Care 06/08/17 17:32 Ordered Oxygen Therapy [RC] PRN Care 06/08/17 17:32 Ordered RT Aerosol Therapy [RC] ASDIRECTED Care 06/08/17 17:33 Ordered Up ad Eunice [RC] ASDIRECTED Care 06/08/17 17:32 Ordered VTE/DVT Education [RC] PER UNIT ROUTINE Care 06/08/17 17:32 Ordered Vital Signs [RC] Q4H Care 06/08/17 17:32 Ordered Consult to Spiritual Care [CONS] Routine Cons 06/08/17 17:34 Ordered Regular Diet [DIET] Diet 06/08/17 Dinner Ordered C-REACTIVE PROTEIN [CHEM] AM Lab 06/09/17 05:11 Ordered C-REACTIVE PROTEIN [CHEM] AM Lab 06/10/17 05:11 Ordered C-REACTIVE PROTEIN [CHEM] AM Lab 06/11/17 05:11 Ordered CBC WITH AUTO DIFF [HEME] AM Lab 06/09/17 05:11 Ordered CBC WITH AUTO DIFF [HEME] AM Lab 06/10/17 05:11 Ordered COMPREHENSIVE METABOLIC PN,CMP [CHEM] AM Lab 06/09/17 05:11 Ordered COMPREHENSIVE METABOLIC PN,CMP [CHEM] AM Lab 06/10/17 05:11 Ordered COMPREHENSIVE METABOLIC PN,CMP [CHEM] AM Lab 06/11/17 05:11 Ordered DRUG SCREEN, URINE [URCHEM] Stat Lab 06/08/17 15:11 Ordered GAMMA GLUTAMYL TRANSFERASE,GGT [CHEM] Stat Lab 06/08/17 17:36 Ordered HEPATITIS PANEL, ACUTE [REF] Stat Lab 06/08/17 16:10 Received MAGNESIUM [CHEM] AM Lab 06/09/17 05:11 Ordered MAGNESIUM [CHEM] AM Lab 06/10/17 05:11 Ordered MAGNESIUM [CHEM] AM Lab 06/11/17 05:11 Ordered Albuterol/Ipratropium [DuoNeb 3.0-0.5 MG/3 ML] Med 06/08/17 17:32 Ordered 3 ml NEB Q4H PRN Bisacodyl [Dulcolax] Med 06/08/17 17:32 Ordered 5 mg PO DAILY PRN Docusate Sodium [Colace] Med 06/08/17 17:32 Ordered 100 mg PO BID PRN Docusate Sodium/Sennosides [Senna Plus] Med 06/08/17 17:32 Ordered 1 tab PO BID PRN HYDROmorphone [Dilaudid] Med 06/08/17 17:32 Ordered 0.25 mg IVPUSH Q2H PRN Ibuprofen [Motrin] Med 06/08/17 17:32 Ordered 600 mg PO Q6H PRN LORazepam [Ativan] Med 06/08/17 17:31 Ordered 2 mg IVPUSH Q4H PRN Magnesium Rep Pharmacy to Dose [Pharmacy to Dose - Med 06/08/17 17:45 Ordered Magnesium Replacement] 1 dose .XX ASDIRECTED Metoprolol Tartrate [Lopressor] Med 06/08/17 17:31 Ordered 5 mg IVPUSH Q4H PRN Nicotine [Habitrol] Med 06/08/17 17:35 Ordered 21 mg TRDERM DAILY PRN Ondansetron [Zofran] Med 06/08/17 17:32 Ordered 4 mg IV Q6H PRN Pantoprazole [ProTONIX IV] Med 06/08/17 17:32 Once 40 mg IVPUSH ONETIME ONE Polyethylene Glycol 3350 [MiraLAX] Med 06/08/17 17:32 Ordered 17 gm PO DAILY PRN Potassium Rep Pharmacy to Dose [Pharmacy to Dose - Med 06/08/17 17:45 Ordered Potassium Replacement] 1 dose .XX ASDIRECTED Promethazine [Phenergan] 12.5 mg Med 06/08/17 17:32 Ordered Sodium Chloride 0.9% [Normal Saline] 50 ml IV Q6H Sodium Chloride 0.9% @ 125 MLS/HR (1000ml) Med 06/08/17 17:45 Ordered Sodium Chloride 0.9% [Normal Saline] 1,000 ml IV ASDIRECTED Temazepam [Restoril] Med 06/08/17 17:32 Ordered 15 mg PO BEDTIME PRN hydrALAZINE [Apresoline] Med 06/08/17 17:31 Ordered 20 mg IVPUSH Q4H PRN oxyCODONE Med 06/08/17 17:32 Ordered 10 mg PO Q4H PRN Sequential Compression Device [OM.PC] Per Unit Routine Oth 06/08/17 17:32 Ordered Resuscitation Status Routine Resus Stat 06/08/17 17:32 Ordered Medication Orders Albuterol/Ipratropium (Duoneb 3.0-0.5 Mg/3 Ml) 3 ml NEB Q4H PRN PRN Reason: Shortness Of Breath/wheezing Bisacodyl (Dulcolax) 5 mg PO DAILY PRN PRN Reason: Constipation Docusate Sodium (Colace) 100 mg PO BID PRN PRN Reason: Constipation Hydralazine HCl (Apresoline) 20 mg IVPUSH Q4H PRN PRN Reason: Hypertension Hydromorphone HCl (Dilaudid) 0.25 mg IVPUSH Q2H PRN PRN Reason: Pain (severe 7-10) Promethazine HCl 12.5 mg/ (Sodium Chloride) 50.5 mls @ 100 mls/hr IV Q6H PRN PRN Reason: Nausea/Vomiting Sodium Chloride (Normal Saline) 1,000 mls @ 125 mls/hr IV ASDIRECTED KLAUDIA Ibuprofen (Motrin) 600 mg PO Q6H PRN PRN Reason: Pain (moderate 4-6) Lorazepam (Ativan) 2 mg IVPUSH Q4H PRN PRN Reason: Seizures Magnesium Sulfate (Pharmacy To Dose - Magnesium Replacement) 1 dose .XX ASDIRECTED [facility] Metoprolol Tartrate (Lopressor) 5 mg IVPUSH Q4H PRN PRN Reason: Tachycardia Nicotine (Habitrol) 21 mg TRDERM DAILY PRN PRN Reason: Nicotine Ondansetron HCl (Zofran) 4 mg IV Q6H PRN PRN Reason: Nausea/Vomiting Oxycodone HCl (Oxycodone) 10 mg PO Q4H PRN PRN Reason: Pain (moderate 4-6) Pantoprazole Sodium (Protonix Iv) 40 mg IVPUSH ONETIME ONE Stop: 06/08/17 17:33 Polyethylene Glycol (Miralax) 17 gm PO DAILY PRN PRN Reason: Constipation Potassium Chloride (Pharmacy To Dose - Potassium Replacement) 1 dose .XX ASDIRECTED [facility] Senna/Docusate Sodium (Senna Plus) 1 tab PO BID PRN PRN Reason: Constipation Temazepam (Restoril) 15 mg PO BEDTIME PRN PRN Reason: Sleep Assessment/Plan Comment:: Assessment/Plan: Acute: Hepatitis - Suspect 2/2 Tylenol and ETOH Abuse - Cannot r/o Viral Hepatitis; recently got out of [facility] in February 2017 - No hx/o blood transfusion or surgery in the past and denies hx/o IVDU - A recent fall and suffered mild knee abrasion and left buttock lesion - He has been taking a significant amount of tylenol 5 x a day for 3-4 days; on top of it he has been drinking hard liquor - AST 1974 and ALT 1959 with T. Bili of 2.4 - Hepatitis panel and GGT; he aware hepatitis may take a week to know the result - IV hydration and serial liver enzymes Hyperbilirubinemia - T. bilirubin 2.4 - 2/2 Acute hepatitis - No signs of jaundice - Supportive care and Monitor level Active Tobacco User - Smokes 1ppd - Counseled on smoking cessation - he is not ready to quit Plan: Admit to the floor Routine AM Labs IV Hydration Avoid ETOH and Tylenol Regular diet Code status: 1
[2017-06-08] MEDS: Nicotine 21 MG/24 Hr Patch TRDERM PRN ×2 (19:42→20:53)
[2017-06-08] MEDS: Sodium Chloride 0.9% 1,000 ML IV SCH (19:45)
[2017-06-08] MEDS: oxyCODONE 5 MG Tab PO PRN (23:24)
[2017-06-09] MEDS: Sodium Chloride 0.9% 1,000 ML IV SCH ×5 (03:36→22:51)
--- NOTE | 2017-06-09 07:06 | PCM.PN ---
- General Info Date of Service: 06/09/17 Admission Dx/Problem (Free Text): Acute Hepatitis Subjective Update: Follow Up - Patient Data Vitals - Most Recent: Last Vital Signs Temp 36.6 C 06/09/17 03:32 Pulse 75 06/09/17 03:32 Resp 14 06/09/17 03:32 BP 121/81 06/09/17 03:32 Pulse Ox 98 06/09/17 03:32 Weight - Most Recent: 76.884 kg I&O - Last 24 Hours: Intake & Output 06/08/17 06/09/17 06/09/17 22:59 06:59 14:59 Intake Total 1485 Balance 1485 Lab Results Last 24 Hours: Laboratory Results - last 24 hr 06/08/17 06/08/17 06/08/17 Range/Units 15:11 15:11 15:11 WBC 11.49 H (4.23-9.07) K/mm3 RBC 5.82 (4.63-6.08) M/mm3 Hgb 17.8 H (13.7-17.5) gm/L Hct 52.3 H (40.1-51.0) % MCV 89.9 (79.0-92.2) fl MCH 30.6 (25.7-32.2) pg MCHC 34.0 (32.2-35.5) g/dl RDW Std Deviation 46.1 H (35.1-43.9) fL Plt Count 286 (163-337) K/mm3 MPV 10.3 (9.4-12.3) fl Neut % (Auto) 80.8 H (34.0-67.9) % Lymph % (Auto) 8.5 L (21.8-53.1) % Crisp % (Auto) 9.2 (5.3-12.2) % Eos % (Auto) 0.8 (0.8-7.0) Baso % (Auto) 0.4 (0.1-1.2) % Neut # (Auto) 9.28 H (1.78-5.38) K/mm3 Lymph # (Auto) 0.98 L (1.32-3.57) K/mm3 Crisp # (Auto) 1.06 H (0.30-0.82) K/mm3 Eos # (Auto) 0.09 (0.04-0.54) K/mm3 Baso # (Auto) 0.05 (0.01-0.08) K/mm3 Manual Slide Review Normal smear PT (8.0-13.0) SECONDS INR Sodium 136 (136-145) mEq/L Potassium 4.2 (3.5-5.1) mEq/L Chloride 99 (98-107) mEq/L Carbon Dioxide 26 (21-32) mEq/L Anion Gap 15.2 H (5-15) BUN 5 L (7-18) mg/dL Creatinine 0.9 (0.7-1.3) mg/dL Est Cr Clr Drug Dosing 142.51 mL/min Estimated GFR (MDRD) > 60 (>60) mL/min BUN/Creatinine Ratio 5.6 L (14-18) Glucose 110 H (74-106) mg/dL Calcium 9.3 (8.5-10.1) mg/dL Magnesium (1.8-2.4) mg/dl Total Bilirubin 2.4 H (0.2-1.0) mg/dL GGT (15-85) U/L AST 1974 H (15-37) U/L ALT 1959 H (16-63) U/L Alkaline Phosphatase 111 (46-116) U/L C-Reactive Protein (<1.0) mg/dL Total Protein 7.7 (6.4-8.2) g/dl Albumin 4.2 (3.4-5.0) g/dl Globulin 3.5 gm/dL Albumin/Globulin Ratio 1.2 (1-2) Lipase 56 L (73-393) U/L Urine Color (Yellow) Urine Appearance (Clear) Urine pH (5.0-8.0) Ur Specific Prue (1.005-1.030) Urine Protein (Negative) Urine Glucose (UA) (Negative) Urine Ketones (Negative) Urine Occult Blood (Negative) Urine Nitrite (Negative) Urine Bilirubin (Negative) Urine Urobilinogen (0.2-1.0) Ur Leukocyte Esterase (Negative) Urine RBC (0-5) /hpf Urine WBC (0-5) /hpf Ur Epithelial Cells (0-5) /hpf Urine Bacteria (FEW) /hpf Urine Mucus (FEW) /hpf Salicylates < 0.2 L (2.8-20) mg/dL Urine Opiates Screen (NEGATIVE) Ur Buprenorphine Scrn (NEGATIVE) Ur Oxycodone Screen (NEGATIVE) Urine Methadone Screen (NEGATIVE) Ur Propoxyphene Screen (NEGATIVE) Acetaminophen 0 L (10-30) ug/mL Ur Barbiturates Screen (NEGATIVE) Ur Tricyclics Screen (NEGATIVE) Ur Phencyclidine Scrn (NEGATIVE) Ur Amphetamine Screen (NEGATIVE) U Methamphetamines Scrn (NEGATIVE) U Benzodiazepines Scrn (NEGATIVE) U Cocaine Metab Screen (NEGATIVE) U Marijuana (THC) Screen (NEGATIVE) Ethyl Alcohol (0.00) gm% 06/08/17 06/08/17 06/08/17 Range/Units 15:11 15:11 15:11 WBC (4.23-9.07) K/mm3 RBC (4.63-6.08) M/mm3 Hgb (13.7-17.5) gm/L Hct (40.1-51.0) % MCV (79.0-92.2) fl MCH (25.7-32.2) pg MCHC (32.2-35.5) g/dl RDW Std Deviation (35.1-43.9) fL Plt Count (163-337) K/mm3 MPV (9.4-12.3) fl Neut % (Auto) (34.0-67.9) % Lymph % (Auto) (21.8-53.1) % Crisp % (Auto) (5.3-12.2) % Eos % (Auto) (0.8-7.0) Baso % (Auto) (0.1-1.2) % Neut # (Auto) (1.78-5.38) K/mm3 Lymph # (Auto) (1.32-3.57) K/mm3 Crisp # (Auto) (0.30-0.82) K/mm3 Eos # (Auto) (0.04-0.54) K/mm3 Baso # (Auto) (0.01-0.08) K/mm3 Manual Slide Review PT (8.0-13.0) SECONDS INR Sodium (136-145) mEq/L Potassium (3.5-5.1) mEq/L Chloride (98-107) mEq/L Carbon Dioxide (21-32) mEq/L Anion Gap (5-15) BUN (7-18) mg/dL Creatinine (0.7-1.3) mg/dL Est Cr Clr Drug Dosing mL/min Estimated GFR (MDRD) (>60) mL/min BUN/Creatinine Ratio (14-18) Glucose (74-106) mg/dL Calcium (8.5-10.1) mg/dL Magnesium (1.8-2.4) mg/dl Total Bilirubin (0.2-1.0) mg/dL GGT (15-85) U/L AST (15-37) U/L ALT (16-63) U/L Alkaline Phosphatase (46-116) U/L C-Reactive Protein (<1.0) mg/dL Total Protein (6.4-8.2) g/dl Albumin (3.4-5.0) g/dl Globulin gm/dL Albumin/Globulin Ratio (1-2) Lipase (73-393) U/L Urine Color Dark yellow (Yellow) Urine Appearance Clear (Clear) Urine pH 6.5 (5.0-8.0) Ur Specific Prue > or = 1.030 (1.005-1.030) Urine Protein 2+ H (Negative) Urine Glucose (UA) Negative (Negative) Urine Ketones Negative (Negative) Urine Occult Blood Trace-lysed H (Negative) Urine Nitrite Negative (Negative) Urine Bilirubin 1+ H (Negative) Urine Urobilinogen 4.0 H (0.2-1.0) Ur Leukocyte Esterase Negative (Negative) Urine RBC 0-5 (0-5) /hpf Urine WBC 5-10 H (0-5) /hpf Ur Epithelial Cells 5-10 H (0-5) /hpf Urine Bacteria Few (FEW) /hpf Urine Mucus Many H (FEW) /hpf Salicylates (2.8-20) mg/dL Urine Opiates Screen Negative (NEGATIVE) Ur Buprenorphine Scrn Negative (NEGATIVE) Ur Oxycodone Screen Negative (NEGATIVE) Urine Methadone Screen Negative (NEGATIVE) Ur Propoxyphene Screen Negative (NEGATIVE) Acetaminophen (10-30) ug/mL Ur Barbiturates Screen Negative (NEGATIVE) Ur Tricyclics Screen Negative (NEGATIVE) Ur Phencyclidine Scrn Negative (NEGATIVE) Ur Amphetamine Screen Negative (NEGATIVE) U Methamphetamines Scrn Negative (NEGATIVE) U Benzodiazepines Scrn Presumptive positive H (NEGATIVE) U Cocaine Metab Screen Negative (NEGATIVE) U Marijuana (THC) Screen Negative (NEGATIVE) Ethyl Alcohol 0.00 (0.00) gm% 06/08/17 06/08/17 06/09/17 Range/Units 16:10 17:15 04:15 WBC 9.26 H (4.23-9.07) K/mm3 RBC 5.69 (4.63-6.08) M/mm3 Hgb 17.0 (13.7-17.5) gm/L Hct 51.3 H (40.1-51.0) % MCV 90.2 (79.0-92.2) fl MCH 29.9 (25.7-32.2) pg MCHC 33.1 (32.2-35.5) g/dl RDW Std Deviation 45.5 H (35.1-43.9) fL Plt Count 253 (163-337) K/mm3 MPV 10.1 (9.4-12.3) fl Neut % (Auto) 75.4 H (34.0-67.9) % Lymph % (Auto) 12.1 L (21.8-53.1) % Crisp % (Auto) 9.1 (5.3-12.2) % Eos % (Auto) 2.9 (0.8-7.0) Baso % (Auto) 0.3 (0.1-1.2) % Neut # (Auto) 6.98 H (1.78-5.38) K/mm3 Lymph # (Auto) 1.12 L (1.32-3.57) K/mm3 Crisp # (Auto) 0.84 H (0.30-0.82) K/mm3 Eos # (Auto) 0.27 (0.04-0.54) K/mm3 Baso # (Auto) 0.03 (0.01-0.08) K/mm3 Manual Slide Review PT 13.6 H (8.0-13.0) SECONDS INR 1.27 Sodium (136-145) mEq/L Potassium (3.5-5.1) mEq/L Chloride (98-107) mEq/L Carbon Dioxide (21-32) mEq/L Anion Gap (5-15) BUN (7-18) mg/dL Creatinine (0.7-1.3) mg/dL Est Cr Clr Drug Dosing mL/min Estimated GFR (MDRD) (>60) mL/min BUN/Creatinine Ratio (14-18) Glucose (74-106) mg/dL Calcium (8.5-10.1) mg/dL Magnesium (1.8-2.4) mg/dl Total Bilirubin (0.2-1.0) mg/dL GGT 65 (15-85) U/L AST (15-37) U/L ALT (16-63) U/L Alkaline Phosphatase (46-116) U/L C-Reactive Protein (<1.0) mg/dL Total Protein (6.4-8.2) g/dl Albumin (3.4-5.0) g/dl Globulin gm/dL Albumin/Globulin Ratio (1-2) Lipase (73-393) U/L Urine Color (Yellow) Urine Appearance (Clear) Urine pH (5.0-8.0) Ur Specific Prue (1.005-1.030) Urine Protein (Negative) Urine Glucose (UA) (Negative) Urine Ketones (Negative) Urine Occult Blood (Negative) Urine Nitrite (Negative) Urine Bilirubin (Negative) Urine Urobilinogen (0.2-1.0) Ur Leukocyte Esterase (Negative) Urine RBC (0-5) /hpf Urine WBC (0-5) /hpf Ur Epithelial Cells (0-5) /hpf Urine Bacteria (FEW) /hpf Urine Mucus (FEW) /hpf Salicylates (2.8-20) mg/dL Urine Opiates Screen (NEGATIVE) Ur Buprenorphine Scrn (NEGATIVE) Ur Oxycodone Screen (NEGATIVE) Urine Methadone Screen (NEGATIVE) Ur Propoxyphene Screen (NEGATIVE) Acetaminophen (10-30) ug/mL Ur Barbiturates Screen (NEGATIVE) Ur Tricyclics Screen (NEGATIVE) Ur Phencyclidine Scrn (NEGATIVE) Ur Amphetamine Screen (NEGATIVE) U Methamphetamines Scrn (NEGATIVE) U Benzodiazepines Scrn (NEGATIVE) U Cocaine Metab Screen (NEGATIVE) U Marijuana (THC) Screen (NEGATIVE) Ethyl Alcohol (0.00) gm% 06/09/17 Range/Units 04:15 WBC (4.23-9.07) K/mm3 RBC (4.63-6.08) M/mm3 Hgb (13.7-17.5) gm/L Hct (40.1-51.0) % MCV (79.0-92.2) fl MCH (25.7-32.2) pg MCHC (32.2-35.5) g/dl RDW Std Deviation (35.1-43.9) fL Plt Count (163-337) K/mm3 MPV (9.4-12.3) fl Neut % (Auto) (34.0-67.9) % Lymph % (Auto) (21.8-53.1) % Crisp % (Auto) (5.3-12.2) % Eos % (Auto) (0.8-7.0) Baso % (Auto) (0.1-1.2) % Neut # (Auto) (1.78-5.38) K/mm3 Lymph # (Auto) (1.32-3.57) K/mm3 Crisp # (Auto) (0.30-0.82) K/mm3 Eos # (Auto) (0.04-0.54) K/mm3 Baso # (Auto) (0.01-0.08) K/mm3 Manual Slide Review PT (8.0-13.0) SECONDS INR Sodium 137 (136-145) mEq/L Potassium 4.0 (3.5-5.1) mEq/L Chloride 101 (98-107) mEq/L Carbon Dioxide 28 (21-32) mEq/L Anion Gap 12.0 (5-15) BUN 4 L (7-18) mg/dL Creatinine 1.0 (0.7-1.3) mg/dL Est Cr Clr Drug Dosing 127.07 mL/min Estimated GFR (MDRD) > 60 (>60) mL/min BUN/Creatinine Ratio 4.0 L (14-18) Glucose 124 H (74-106) mg/dL Calcium 8.6 (8.5-10.1) mg/dL Magnesium 1.8 (1.8-2.4) mg/dl Total Bilirubin 1.9 H (0.2-1.0) mg/dL GGT (15-85) U/L AST 2355 H (15-37) U/L ALT 2801 H (16-63) U/L Alkaline Phosphatase 99 (46-116) U/L C-Reactive Protein 5.6 H* (<1.0) mg/dL Total Protein 7.1 (6.4-8.2) g/dl Albumin 3.6 (3.4-5.0) g/dl Globulin 3.5 gm/dL Albumin/Globulin Ratio 1.0 (1-2) Lipase (73-393) U/L Urine Color (Yellow) Urine Appearance (Clear) Urine pH (5.0-8.0) Ur Specific Prue (1.005-1.030) Urine Protein (Negative) Urine Glucose (UA) (Negative) Urine Ketones (Negative) Urine Occult Blood (Negative) Urine Nitrite (Negative) Urine Bilirubin (Negative) Urine Urobilinogen (0.2-1.0) Ur Leukocyte Esterase (Negative) Urine RBC (0-5) /hpf Urine WBC (0-5) /hpf Ur Epithelial Cells (0-5) /hpf Urine Bacteria (FEW) /hpf Urine Mucus (FEW) /hpf Salicylates (2.8-20) mg/dL Urine Opiates Screen (NEGATIVE) Ur Buprenorphine Scrn (NEGATIVE) Ur Oxycodone Screen (NEGATIVE) Urine Methadone Screen (NEGATIVE) Ur Propoxyphene Screen (NEGATIVE) Acetaminophen (10-30) ug/mL Ur Barbiturates Screen (NEGATIVE) Ur Tricyclics Screen (NEGATIVE) Ur Phencyclidine Scrn (NEGATIVE) Ur Amphetamine Screen (NEGATIVE) U Methamphetamines Scrn (NEGATIVE) U Benzodiazepines Scrn (NEGATIVE) U Cocaine Metab Screen (NEGATIVE) U Marijuana (THC) Screen (NEGATIVE) Ethyl Alcohol (0.00) gm% Med Orders - Current: Current Medications Albuterol/Ipratropium (Duoneb 3.0-0.5 Mg/3 Ml) 3 ml NEB Q4H PRN PRN Reason: Shortness Of Breath/wheezing Bisacodyl (Dulcolax) 5 mg PO DAILY PRN PRN Reason: Constipation Docusate Sodium (Colace) 100 mg PO BID PRN PRN Reason: Constipation Hydralazine HCl (Apresoline) 20 mg IVPUSH Q4H PRN PRN Reason: Hypertension Hydromorphone HCl (Dilaudid) 0.25 mg IVPUSH Q2H PRN PRN Reason: Pain (severe 7-10) Promethazine HCl 12.5 mg/ (Sodium Chloride) 50.5 mls @ 100 mls/hr IV Q6H PRN PRN Reason: Nausea/Vomiting Sodium Chloride (Normal Saline) 1,000 mls @ 125 mls/hr IV ASDIRECTED [facility] Last Admin: 06/09/17 03:36 Dose: 125 mls/hr Ibuprofen (Motrin) 600 mg PO Q6H PRN PRN Reason: Pain (moderate 4-6) Last Admin: 06/08/17 20:08 Dose: 600 mg Lorazepam (Ativan) 2 mg IVPUSH Q4H PRN PRN Reason: Seizures Magnesium Sulfate (Pharmacy To Dose - Magnesium Replacement) 1 dose .XX ASDIRECTED [facility] Metoprolol Tartrate (Lopressor) 5 mg IVPUSH Q4H PRN PRN Reason: Tachycardia Miscellaneous Information (Remove Patch) 1 ea TRDERM DAILY PRN PRN Reason: Other Nicotine (Habitrol) 21 mg TRDERM DAILY PRN PRN Reason: Nicotine Last Admin: 06/08/17 20:53 Dose: 21 mg Ondansetron HCl (Zofran) 4 mg IV Q6H PRN PRN Reason: Nausea/Vomiting Oxycodone HCl (Oxycodone) 10 mg PO Q4H PRN PRN Reason: Pain (moderate 4-6) Last Admin: 06/08/17 23:24 Dose: 10 mg Polyethylene Glycol (Miralax) 17 gm PO DAILY PRN PRN Reason: Constipation Potassium Chloride (Pharmacy To Dose - Potassium Replacement) 1 dose .XX ASDIRECTED [facility] Senna/Docusate Sodium (Senna Plus) 1 tab PO BID PRN PRN Reason: Constipation Temazepam (Restoril) 15 mg PO BEDTIME PRN PRN Reason: Sleep Discontinued Medications Acetylcysteine 12,240 mg/ (Dextrose/Water) 161.2 mls @ 161 mls/hr IV ONETIME ONE Stop: 06/08/17 17:00 Last Admin: 06/08/17 21:44 Dose: Not Given Pantoprazole Sodium (Protonix Iv) 40 mg IVPUSH ONETIME ONE Stop: 06/08/17 17:33 Last Admin: 06/08/17 19:41 Dose: 40 mg Pantoprazole Sodium (Protonix Iv) 40 mg IVPUSH ONETIME ONE Stop: 06/08/17 20:01 Last Admin: 06/08/17 21:27 Dose: Not Given - Exam General: Alert, Oriented, Cooperative, No Acute Distress HEENT: Pupils Equal, Pupils Reactive, EOMI, Mucous Membr. Moist/[place]. No: Scleral Icterus Neck: Supple, Trachea Midline, No JVD, No Thyromegaly, +2 Carotid Pulse wo Bruit Lungs: Clear to Auscultation, Normal Respiratory Effort Cardiovascular: Regular Rate, Regular Rhythm GI/Abdominal Exam: Normal Bowel Sounds, Soft, No Organomegaly, No Distention, No Abnormal Bruit, No Mass, Tender (right upper abdomen). No: Guarding, Rigid, Rebound (Male) Exam: Deferred Back Exam: Normal Inspection, Full Range of Motion Extremities: Normal Inspection, Normal Range of Motion, Non-Tender, No Pedal Edema, Normal Capillary Refill Peripheral Pulses: 3+: Popliteal (R), Posterior Tibial (L), Posterior Tibial (R) , Dorsalis Pedis (L), Dorsalis Pedis (R) Skin: Warm, Dry, Intact Neurological: No New Focal Deficit, Normal Gait Psy/Mental Status: Alert, Normal Affect, Normal Mood - Problem List Review Problem List Initiated/Reviewed/Updated: Yes - My Orders Last 24 Hours: My Active Orders 06/08/17 17:31 LORazepam [Ativan] 2 mg IVPUSH Q4H PRN Metoprolol Tartrate [Lopressor] 5 mg IVPUSH Q4H PRN hydrALAZINE [Apresoline] 20 mg IVPUSH Q4H PRN 06/08/17 17:32 Height and Weight [RC] 04 Intake and Output [RC] 04,16 Oxygen Therapy [RC] PRN Up ad Eunice [RC] ASDIRECTED VTE/DVT Education [RC] BID Vital Signs [RC] Q4HR Albuterol/Ipratropium [DuoNeb 3.0-0.5 MG/3 ML] 3 ml NEB Q4H PRN Bisacodyl [Dulcolax] 5 mg PO DAILY PRN Docusate Sodium [Colace] 100 mg PO BID PRN Docusate Sodium/Sennosides [Senna Plus] 1 tab PO BID PRN HYDROmorphone [Dilaudid] 0.25 mg IVPUSH Q2H PRN Ibuprofen [Motrin] 600 mg PO Q6H PRN Ondansetron [Zofran] 4 mg IV Q6H PRN Polyethylene Glycol 3350 [MiraLAX] 17 gm PO DAILY PRN Promethazine [Phenergan] 12.5 mg Sodium Chloride 0.9% [Normal Saline] 50 ml IV Q6H Temazepam [Restoril] 15 mg PO BEDTIME PRN oxyCODONE 10 mg PO Q4H PRN Sequential Compression Device [OM.PC] Per Unit Routine Resuscitation Status Routine 06/08/17 17:33 RT Aerosol Therapy [RC] ASDIRECTED 06/08/17 17:34 Consult to Spiritual Care [CONS] Routine 06/08/17 17:35 Nicotine [Habitrol] 21 mg TRDERM DAILY PRN 06/08/17 17:43 Remove Patch 1 ea TRDERM DAILY PRN 06/08/17 17:45 Magnesium Rep Pharmacy to Dose [Pharmacy to Dose - Magnesium Replacement] 1 dose .XX ASDIRECTED Potassium Rep Pharmacy to Dose [Pharmacy to Dose - Potassium Replacement] 1 dose .XX ASDIRECTED Sodium Chloride 0.9% [Normal Saline] 1,000 ml IV ASDIRECTED 06/08/17 Dinner Regular Diet [DIET] 06/09/17 07:15 Sodium Chloride 0.9% [Normal Saline] 1,000 ml IV ASDIRECTED 06/10/17 05:11 C-REACTIVE PROTEIN [CHEM] AM CBC WITH AUTO DIFF [HEME] AM COMPREHENSIVE METABOLIC PN,CMP [CHEM] AM MAGNESIUM [CHEM] AM 06/11/17 05:11 C-REACTIVE PROTEIN [CHEM] AM COMPREHENSIVE METABOLIC PN,CMP [CHEM] AM MAGNESIUM [CHEM] AM - Plan Plan:: Assessment/Plan: Acute: Hepatitis, Worsening - Suspect 2/2 Tylenol and ETOH Abuse - Cannot r/o Viral Hepatitis; recently got out of care home in February 2017 - No hx/o blood transfusion or surgery in the past and denies hx/o IVDU - A recent fall and suffered mild knee abrasion and left buttock lesion - He has been taking a significant amount of tylenol 5 x a day for 3-4 days; on top of it he has been drinking hard liquor - AST 1973--> 2355 and ALT 1958 --> 2801 - Hepatitis panel and GGT; he aware hepatitis may take a week to know the result - Consider Acetylcystein treatment; pharmacy recommend against since tylenol level on admission was essentially zero - Increased IV hydration and continue serial liver enzymes Hyperbilirubinemia, Improving - T. bilirubin 2.4--> 1.9 - 2/2 Acute hepatitis - No signs of jaundice - Supportive care and Monitor level Active Tobacco User - Smokes 1ppd - Counseled on smoking cessation - he is not ready to quit Plan: He is clinically stable Continue current treatment Routine AM Labs Avoid ETOH and Tylenol Hepatitis panel still pending Regular diet Encourage to Ambulate as tolerated Code status: 1 Possible d/c in 1-2 days
[2017-06-09] MEDS: oxyCODONE 5 MG Tab PO PRN ×3 (14:40→22:52)
[2017-06-09] MEDS: Nicotine 21 MG/24 Hr Patch TRDERM PRN (16:02)
--- NOTE | 2017-06-09 20:03 | PCM.HP ---
H&P History of Present Illness - General Date of Service: 06/08/17 Admit Problem/Dx: Acute Alcoholic Hepatitis Source of Information: Patient, Family, Provider, RN Notes Reviewed History Limitations: Reports: No Limitations - History of Present Illness Initial Comments - Free Text/Narative: This is a 21 yo white male with no significant past medical hx who comes in for evaluation of worsening RUQ pain that started 3 days ago. He denies any provoking factors. He recently had a fall and has been taking a fairly good amount of tylenol for knee pain, at least 5 times a day. On top of that, he also admits to have been drinking ETOH excessively after a recent family gathering in [place]. He denies any surgical hx/o, or hx/o blood and or blood product transfusions. He further denies IVDU. However he admits to recent incarceration in Feb 2017 in [place], [place]. 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 Patient has multiple tattoos all over his body. On presentation to ED, he reports no fever, vomiting but mild nausea. He denies having cough, chest pain, and shortness of breath. He reports no similar hx/o symptoms previously. His initial work up in ED shows a CBC remarkable for WBC of 11.49, Hgb of 17.8, Hct of 52.3, RDW of 46.1, Neutrophils or 80.8%, and Lymphocytes of 8.5%. His chemistry is significant for AG of 15.2, BUN of 5, Glucose of 110, Total Bilirubin of 2.4, AST of 1974, and ALT of 1956. His UA is suggestive of dehydration with spec gravity of > or = 1.030, 4+ urobilinogen and 2+ protein. His UDS shows Salicylates of <0.2, Acetaminohoen 0, VAN 0 but pos for Benzodiazepines. Patient is being admitted for acute alcoholic hepatitis +/- tylenol toxicity. He is full code. Right Upper Abdominal Pain Score (Numeric/FACES): 6 - Related Data Allergies/Adverse Reactions: Allergies Allergy/AdvReac Type Severity Reaction Status Date / Time peaches Allergy Swelling Uncoded 06/08/17 14:43 Home Medications: Home Meds oxyCODONE 5 mg PO Q6H PRN #12 tablet 06/10/17 [Rx] Past Medical History - Past Health History Medical/Surgical History: Denies Medical/Surgical History Respiratory History: Reports: Asthma Other Respiratory History: Takes PRN inhaler. Has not had it filled since arrival to [place]. Musculoskeletal History: Reports: None Psychiatric History: Reports: Depression - Infectious Disease History Infectious Disease History: Reports: Influenza - Past Surgical History Musculoskeletal Surgical History: Reports: Other (See Below) Social & Family History - Family History Respiratory: Reports: Asthma Other Respiratory Family Hisory: Mother - Tobacco Use Smoking Status *Q: Current Every Day Smoker Years of Tobacco use: 5 Packs/Tins Daily: 0.5 Used Tobacco, but Quit: No Second Hand Smoke Exposure: No - Caffeine Use Caffeine Use: Reports: None - Alcohol Use Days Per Week of Alcohol Use: 1 Number of Drinks Per Day: 2 Total Drinks Per Week: 2 Date of Last Drink: 06/05/17 Time of Last Drink: 18:00 - Recreational Drug Use Recreational Drug Use: No Drug Use in Last 12 Months: Yes Recreational Drug Type: Reports: Heroin, Marijuana/Hashish Recreational Drug Use Frequency: Daily Recreational Drug Last Use: 05/26/15 H&P Review of Systems - Review of Systems: Review Of Systems: See Below General: Denies: Fever, Chills, Malaise, Weakness HEENT: Reports: No Symptoms Pulmonary: Denies: Shortness of Breath Cardiovascular: Denies: Chest Pain, Palpitations, Dyspnea on Exertion, Lightheadedness, Syncope Gastrointestinal: Reports: Abdominal Pain, Flatus, Nausea. Denies: Constipation , Diarrhea, Decreased Appetite, Difficulty Swallowing, Vomiting Genitourinary: Reports: No Symptoms Musculoskeletal: Reports: No Symptoms Skin: Denies: Cyanosis, Jaundice, Pallor, Diaphoresis, Pruritis, Erythema Psychiatric: Denies: Confusion, Depression, Mood Lability, Anxiety, Agitation, Hallucinations, Suicidal Ideation Neurological: Denies: Dizziness, Tremors, Difficulty Walking, Weakness, Gait Disturbance Hematologic/Lymphatic: Reports: No Symptoms Immunologic: Reports: No Symptoms Exam - Exam Exam: See Below - Vital Signs Vital Signs: Last Vital Signs Temp 36.7 C 06/09/17 15:53 Pulse 87 06/09/17 15:53 Resp 20 06/09/17 15:53 BP 147/90 H 06/09/17 15:53 Pulse Ox 97 06/09/17 18:53 Weight: 76.884 kg - Exam General: Alert, Oriented, Cooperative HEENT: Conjunctiva Clear, EACs Clear, EOMI, Hearing Intact, Mucosa Moist & Mcnair , Nares Patent, Normal Nasal Septum, Posterior Pharynx Clear, Pupils Reactive, TMs Clear. No: Pupils Equal, Scleral Icterus Neck: Supple, Trachea Midline, +2 Carotid Pulse wo Bruit, Full Range of Motion Lungs: Clear to Auscultation, Normal Respiratory Effort Cardiovascular: Regular Rate, Regular Rhythm GI/Abdominal Exam: Normal Bowel Sounds, Soft, No Organomegaly, No Distention, No Abnormal Bruit, No Mass, Pelvis Stable, Tender (right upper quadrant). No: Guarding, Rigid, Rebound, Hernia (Male) Exam: No Hernia, Deferred Rectal (Males) Exam: Deferred Back Exam: Normal Inspection, Full Range of Motion, Other (small size lesion on intergluteal cleft) Extremities: Normal Inspection, Normal Range of Motion, Non-Tender, No Pedal Edema, Normal Capillary Refill, Other (left knee abrasion) Peripheral Pulses: 3+: Posterior Tibial (L), Posterior Tibial (R), Dorsalis Pedis (L), Dorsalis Pedis (R) Skin: Warm, Dry, Intact, Other (multiple tattoos) Neuro Extensive - Mental Status: Oriented x3, Normal Cognition, Memory Intact Neuro Extensive - Motor, Sensory, Reflexes: CN II-XII Intact, Normal Gait DTR: 2+: Patella (L), Patella (R) Psychiatric: Alert, Normal Affect, Normal Mood - Patient Data Lab Results Last 24 hrs: Laboratory Results - last 24 hr 06/09/17 06/09/17 Range/Units 04:15 04:15 WBC 9.26 H (4.23-9.07) K/mm3 RBC 5.69 (4.63-6.08) M/mm3 Hgb 17.0 (13.7-17.5) gm/L Hct 51.3 H (40.1-51.0) % MCV 90.2 (79.0-92.2) fl MCH 29.9 (25.7-32.2) pg MCHC 33.1 (32.2-35.5) g/dl RDW Std Deviation 45.5 H (35.1-43.9) fL Plt Count 253 (163-337) K/mm3 MPV 10.1 (9.4-12.3) fl Neut % (Auto) 75.4 H (34.0-67.9) % Lymph % (Auto) 12.1 L (21.8-53.1) % Wood % (Auto) 9.1 (5.3-12.2) % Eos % (Auto) 2.9 (0.8-7.0) Baso % (Auto) 0.3 (0.1-1.2) % Neut # (Auto) 6.98 H (1.78-5.38) K/mm3 Lymph # (Auto) 1.12 L (1.32-3.57) K/mm3 Wood # (Auto) 0.84 H (0.30-0.82) K/mm3 Eos # (Auto) 0.27 (0.04-0.54) K/mm3 Baso # (Auto) 0.03 (0.01-0.08) K/mm3 Sodium 137 (136-145) mEq/L Potassium 4.0 (3.5-5.1) mEq/L Chloride 101 (98-107) mEq/L Carbon Dioxide 28 (21-32) mEq/L Anion Gap 12.0 (5-15) BUN 4 L (7-18) mg/dL Creatinine 1.0 (0.7-1.3) mg/dL Est Cr Clr Drug Dosing 127.07 mL/min Estimated GFR (MDRD) > 60 (>60) mL/min BUN/Creatinine Ratio 4.0 L (14-18) Glucose 124 H (74-106) mg/dL Calcium 8.6 (8.5-10.1) mg/dL Magnesium 1.8 (1.8-2.4) mg/dl Total Bilirubin 1.9 H (0.2-1.0) mg/dL AST 2355 H (15-37) U/L ALT 2801 H (16-63) U/L Alkaline Phosphatase 99 (46-116) U/L C-Reactive Protein 5.6 H* (<1.0) mg/dL Total Protein 7.1 (6.4-8.2) g/dl Albumin 3.6 (3.4-5.0) g/dl Globulin 3.5 gm/dL Albumin/Globulin Ratio 1.0 (1-2) Result Diagrams: 06/10/17 05:15 04/08/18 05:15 Problem List Initiated/Reviewed/Updated: Yes Orders Last 24hrs: Active Orders 24 hr Category Date Time Status C-REACTIVE PROTEIN [CHEM] AM Lab 06/10/17 05:11 Ordered C-REACTIVE PROTEIN [CHEM] AM Lab 06/11/17 05:11 Ordered CBC WITH AUTO DIFF [HEME] AM Lab 06/10/17 05:11 Ordered COMPREHENSIVE METABOLIC PN,CMP [CHEM] AM Lab 06/10/17 05:11 Ordered COMPREHENSIVE METABOLIC PN,CMP [CHEM] AM Lab 06/11/17 05:11 Ordered MAGNESIUM [CHEM] AM Lab 06/10/17 05:11 Ordered MAGNESIUM [CHEM] AM Lab 06/11/17 05:11 Ordered Sodium Chloride 0.9% [Normal Saline] 1,000 ml Med 06/09/17 07:15 Active IV ASDIRECTED Medication Orders Albuterol/Ipratropium (Duoneb 3.0-0.5 Mg/3 Ml) 3 ml NEB Q4H PRN PRN Reason: Shortness Of Breath/wheezing Bisacodyl (Dulcolax) 5 mg PO DAILY PRN PRN Reason: Constipation Docusate Sodium (Colace) 100 mg PO BID PRN PRN Reason: Constipation Hydralazine HCl (Apresoline) 20 mg IVPUSH Q4H PRN PRN Reason: Hypertension Hydromorphone HCl (Dilaudid) 0.25 mg IVPUSH Q2H PRN PRN Reason: Pain (severe 7-10) Promethazine HCl 12.5 mg/ (Sodium Chloride) 50.5 mls @ 100 mls/hr IV Q6H PRN PRN Reason: Nausea/Vomiting Sodium Chloride (Normal Saline) 1,000 mls @ 250 mls/hr IV ASDIRECTED KLAUDIA Last Admin: 06/09/17 18:44 Dose: 250 mls/hr Infusion: 06/09/17 18:41 Dose: 250 mls/hr Admin: 06/09/17 14:41 Dose: 250 mls/hr Infusion: 06/09/17 14:41 Dose: 250 mls/hr Admin: 06/09/17 10:41 Dose: 250 mls/hr Ibuprofen (Motrin) 600 mg PO Q6H PRN PRN Reason: Pain (moderate 4-6) Last Admin: 06/08/17 20:08 Dose: 600 mg Lorazepam (Ativan) 2 mg IVPUSH Q4H PRN PRN Reason: Seizures Magnesium Sulfate (Pharmacy To Dose - Magnesium Replacement) 1 dose .XX ASDIRECTED [facility] Metoprolol Tartrate (Lopressor) 5 mg IVPUSH Q4H PRN PRN Reason: Tachycardia Miscellaneous Information (Remove Patch) 1 ea TRDERM DAILY PRN PRN Reason: Other Nicotine (Habitrol) 21 mg TRDERM DAILY PRN PRN Reason: Nicotine Last Admin: 06/09/17 16:02 Dose: 21 mg Admin: 06/08/17 20:53 Dose: 21 mg Ondansetron HCl (Zofran) 4 mg IV Q6H PRN PRN Reason: Nausea/Vomiting Oxycodone HCl (Oxycodone) 10 mg PO Q4H PRN PRN Reason: Pain (moderate 4-6) Last Admin: 06/09/17 18:37 Dose: 10 mg Admin: 06/09/17 14:40 Dose: 10 mg Admin: 06/08/17 23:24 Dose: 10 mg Polyethylene Glycol (Miralax) 17 gm PO DAILY PRN PRN Reason: Constipation Potassium Chloride (Pharmacy To Dose - Potassium Replacement) 1 dose .XX ASDIRECTED [facility] Senna/Docusate Sodium (Senna Plus) 1 tab PO BID PRN PRN Reason: Constipation Temazepam (Restoril) 15 mg PO BEDTIME PRN PRN Reason: Sleep Assessment/Plan Comment:: Assessment/Plan: Acute: Hepatitis - Suspect 2/2 Tylenol and ETOH Abuse - Cannot r/o Viral Hepatitis; recently got out of alf in February 2017 - No hx/o blood transfusion or surgery in the past and denies hx/o IVDU - A recent fall and suffered mild knee abrasion and left buttock lesion - He has been taking a significant amount of tylenol 5 x a day for 3-4 days; on top of it he has been drinking hard liquor - AST 1973 and ALT 1958 - Hepatitis panel and GGT; he aware hepatitis may take a week to know the result - IV hydration and serial liver enzymes Hyperbilirubinemia - T. bilirubin 2.4 - 2/2 Acute hepatitis - No signs of jaundice - Supportive care and Monitor level Active Tobacco User - Smokes 1ppd - Counseled on smoking cessation - He is not ready to quit Plan: Admit to Med-Surg Floor Routine AM Labs Iv Hydration Avoid ETOH and Tylenol Hepatitis panel still pending Regular diet Encourage to Ambulate as tolerated Code status: 1
[2017-06-10] MEDS: Sodium Chloride 0.9% 1,000 ML IV SCH ×2 (02:43→06:32)
[2017-06-10 08:19] VITALS: BP 124/86
--- NOTE | 2017-06-10 09:17 | PCM.DCSUM1 ---
Discharge Summary - Hospital Course Brief History: This is a 21 yo white male with no significant past medical hx who comes in for evaluation of worsening RUQ pain that started 3 days ago. He denies any provoking factors. He recently had a fall and has been taking a fairly good amount of tylenol for knee pain, at least 5 times a day. On top of that, he also admits to have been drinking ETOH excessively after a recent family gathering in [place]. He denies any surgical hx/o, or hx/o blood and or blood product transfusions. He further denies IVDU. However he admits to recent incarceration in Feb 2017 in [place], [place]. 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 Patient has multiple tattoos all over his body. On presentation to ED, he reports no fever, vomiting but mild nausea. He denies having cough, chest pain, and shortness of breath. He reports no similar hx/o symptoms previously. His initial work up in ED shows a CBC remarkable for WBC of 11.49, Hgb of 17.8, Hct of 52.3, RDW of 46.1, Neutrophils or 80.8%, and Lymphocytes of 8.5%. His chemistry is significant for AG of 15.2, BUN of 5, Glucose of 110, Total Bilirubin of 2.4, AST of 1974, and ALT of 1956. His UA is suggestive of dehydration with spec gravity of > or = 1.030, 4+ urobilinogen and 2+ protein. His UDS shows Salicylates of <0.2, Acetaminohoen 0 , VAN 0 but pos for Benzodiazepines. Patient is being admitted for acute alcoholic hepatitis +/- tylenol toxicity. - Discharge Data Discharge Date: 06/10/17 Discharge Disposition: Home, Self-Care 01 Condition: Good - Discharge Diagnosis/Problem(s) (1) Hyperbilirubinemia SNOMED Code(s): 77646553 ICD Code: E80.6 - OTHER DISORDERS OF BILIRUBIN METABOLISM Status: Acute (2) Tobacco use SNOMED Code(s): 449578769 ICD Code: Z72.0 - TOBACCO USE Status: Acute (3) Tylenol toxicity SNOMED Code(s): 27666879 ICD Code: T39.1X1A - POISONING BY 4-AMINOPHENOL DERIVATIVES, ACCIDENTAL, INIT Status: Resolved Qualifiers: Encounter type: initial encounter (4) Alcoholic hepatitis SNOMED Code(s): 682871924 ICD Code: K70.10 - ALCOHOLIC HEPATITIS WITHOUT ASCITES Status: Acute Qualifiers: Ascites presence: without ascites Qualified Code(s): K70.10 - Alcoholic hepatitis without ascites - Patient Summary/Data Operative Procedure(s) Performed: None Complications: None Consults: Consultations 06/08/17 17:34 Consult to Spiritual Care [CONS] Routine Labs Pending at D/C: None Recommended Follow-up Testing/Procedures: None Planned Operative Procedure(s) after DC: None Hospital Course: Patient was primarily admitted for medical management of abdominal pain which we felt due to acute alcoholic hepatitis. Patient admitted to drinking heavily recently after a family gathering and also have been taking a fairly good amount of tylenol for knee pain. His abdominal U/S showed no acute abnormal findings. However his chemistry revealed significantly elevated liver enzymes and GGT level. His serum tylenol level was normal and therefore his treatment was mainly supportive care w/o acetylcystein. Slowly, he improved on this regimen. His hospital course was uncomplicated and no additional testing was done except for viral hepatitis panel due to history of incarceration and multiple body tattoos. Patient was aware results may take a while and once available, it will be forwarded to his primary care doctor for review. Patient was stable upon discharge. He was prescribed a short course of narcotic by mouth for his knee pain. He was advised to avoid alcohol and tylenol for a week and to continue with adequate hydration. He was further advised to call or follow-up with his primary care doctor for any questions or concerns after discharge. And most importantly, the patient was advised to come back or seek immediate care should his symptoms persist or get worse. The patient and mother at bedside, expressed understanding and in agreement with the plans as discussed above. All questions were answered. - Patient Instructions Diet: Usual Diet as Tolerated, Drink 8-10+ Glasses/Day Activity: As Tolerated Driving: May Drive Today Showering/Bathing: May Shower Notify Provider of: Fever, Increased Pain, Nausea and/or Vomiting Other/Special Instructions: - Please take new medication as directed. - Avoid Alcohol or Tylenol for 1 weeks. - Repeat CMP next week for elevated liver enzymes. - Resume routine home activities as tolerated. - Call or follow up with your PCP for any questions or concerns after discharge. - Come back or seek immediate care should your symptoms persist or get worse - Discharge Plan Prescriptions/Med Rec: oxyCODONE 5 mg PO Q6H PRN #12 tablet PRN Reason: Pain (Moderate 4-6) Home Medications: Home Meds oxyCODONE 5 mg PO Q6H PRN #12 tablet 06/10/17 [Rx] Patient Handouts: Alcoholic Hepatitis, What You Need to Know About Alcohol Abuse and Dependence, Youth Referrals: PCP,None [Primary Care Provider] - - Discharge Summary/Plan Comment DC Time >30 min.: Yes (45 mins) Discharge Summary/Plan Comment: Discharge to Home Offered practical counseling on smoking cigarettes. He was counseled about the dangers of smoking and associated health risks. At this time he is not ready to quit. Patient was provided reading materials or brochures to help when to quit smoking. He was advised to set a specific date, call the Quit line and follow up with his PCP when he is ready to quit. - General Info Date of Service: 06/10/17 Admission Dx/Problem (Free Text: Acute Hepatitis Subjective Update: Follow Up Functional Status: Reports: Pain Controlled, Tolerating Diet, Ambulating, Urinating - Review of Systems General: Denies: Fever, Weakness, Fatigue, Malaise, Chills HEENT: Reports: No Symptoms Pulmonary: Denies: Shortness of Breath, Pleuritic Chest Pain, Hemoptysis Cardiovascular: Denies: Chest Pain, Palpitations, Dyspnea on Exertion, Edema, Lightheadedness Gastrointestinal: Denies: Abdominal Pain, Nausea, Vomiting Genitourinary: Reports: No Symptoms Musculoskeletal: Reports: No Symptoms Skin: Denies: Jaundice, Mottled, Pallor, Diaphoresis, Bruising, Rash Neurological: Denies: Confusion, Difficulty Walking, Weakness, Gait Disturbance Psychiatric: Denies: Depression, Anxiety, Agitation (No significant ovenright or acute issues. He slept pretty good. He has no complaints this morning.), Hallucinations - Patient Data Vitals - Most Recent: Last Vital Signs Temp 36.5 C 06/10/17 08:08 Pulse 69 06/10/17 08:08 Resp 18 06/10/17 08:08 BP 124/86 06/10/17 08:08 Pulse Ox 96 06/10/17 08:08 Weight - Most Recent: 78.88 kg I&O - Last 24 hours: Intake & Output 06/09/17 06/10/17 06/10/17 22:59 06:59 14:59 Intake Total 3708 4762 Output Total 1200 Balance 3701 2770 Lab Results - Last 24 hrs: Laboratory Results - last 24 hr 06/10/17 06/10/17 Range/Units 05:15 05:15 WBC 8.05 (4.23-9.07) K/mm3 RBC 5.21 (4.63-6.08) M/mm3 Hgb 15.9 (13.7-17.5) gm/L Hct 48.0 (40.1-51.0) % MCV 92.1 (79.0-92.2) fl MCH 30.5 (25.7-32.2) pg MCHC 33.1 (32.2-35.5) g/dl RDW Std Deviation 46.7 H (35.1-43.9) fL Plt Count 232 (163-337) K/mm3 MPV 10.1 (9.4-12.3) fl Neut % (Auto) 52.5 (34.0-67.9) % Lymph % (Auto) 26.3 (21.8-53.1) % [place] % (Auto) 11.8 (5.3-12.2) % Eos % (Auto) 8.7 H (0.8-7.0) Baso % (Auto) 0.5 (0.1-1.2) % Neut # (Auto) 4.22 (1.78-5.38) K/mm3 Lymph # (Auto) 2.12 (1.32-3.57) K/mm3 [place] # (Auto) 0.95 H (0.30-0.82) K/mm3 Eos # (Auto) 0.70 H (0.04-0.54) K/mm3 Baso # (Auto) 0.04 (0.01-0.08) K/mm3 Sodium 139 (136-145) mEq/L Potassium 4.1 (3.5-5.1) mEq/L Chloride 105 (98-107) mEq/L Carbon Dioxide 29 (21-32) mEq/L Anion Gap 9.1 (5-15) BUN 1 L (7-18) mg/dL Creatinine 0.7 (0.7-1.3) mg/dL Est Cr Clr Drug Dosing 181.53 mL/min Estimated GFR (MDRD) > 60 (>60) mL/min BUN/Creatinine Ratio 1.4 L (14-18) Glucose 127 H (74-106) mg/dL Calcium 8.5 (8.5-10.1) mg/dL Magnesium 1.9 (1.8-2.4) mg/dl Total Bilirubin 1.0 (0.2-1.0) mg/dL AST 428 H (15-37) U/L ALT 1521 H (16-63) U/L Alkaline Phosphatase 77 (46-116) U/L C-Reactive Protein 3.7 H* (<1.0) mg/dL Total Protein 6.4 (6.4-8.2) g/dl Albumin 3.2 L (3.4-5.0) g/dl Globulin 3.2 gm/dL Albumin/Globulin Ratio 1.0 (1-2) Med Orders - Current: Current Medications Albuterol/Ipratropium (Duoneb 3.0-0.5 Mg/3 Ml) 3 ml NEB Q4H PRN PRN Reason: Shortness Of Breath/wheezing Bisacodyl (Dulcolax) 5 mg PO DAILY PRN PRN Reason: Constipation Docusate Sodium (Colace) 100 mg PO BID PRN PRN Reason: Constipation Hydralazine HCl (Apresoline) 20 mg IVPUSH Q4H PRN PRN Reason: Hypertension Hydromorphone HCl (Dilaudid) 0.25 mg IVPUSH Q2H PRN PRN Reason: Pain (severe 7-10) Promethazine HCl 12.5 mg/ (Sodium Chloride) 50.5 mls @ 100 mls/hr IV Q6H PRN PRN Reason: Nausea/Vomiting Sodium Chloride (Normal Saline) 1,000 mls @ 250 mls/hr IV ASDIRECTED KLAUDIA Last Admin: 06/10/17 06:32 Dose: 250 mls/hr Ibuprofen (Motrin) 600 mg PO Q6H PRN PRN Reason: Pain (moderate 4-6) Last Admin: 06/08/17 20:08 Dose: 600 mg Lorazepam (Ativan) 2 mg IVPUSH Q4H PRN PRN Reason: Seizures Magnesium Sulfate (Pharmacy To Dose - Magnesium Replacement) 1 dose .XX ASDIRECTED [facility] Metoprolol Tartrate (Lopressor) 5 mg IVPUSH Q4H PRN PRN Reason: Tachycardia Miscellaneous Information (Remove Patch) 1 ea TRDERM DAILY PRN PRN Reason: Other Nicotine (Habitrol) 21 mg TRDERM DAILY PRN PRN Reason: Nicotine Last Admin: 06/09/17 16:02 Dose: 21 mg Ondansetron HCl (Zofran) 4 mg IV Q6H PRN PRN Reason: Nausea/Vomiting Oxycodone HCl (Oxycodone) 10 mg PO Q4H PRN PRN Reason: Pain (moderate 4-6) Last Admin: 06/09/17 22:52 Dose: 10 mg Polyethylene Glycol (Miralax) 17 gm PO DAILY PRN PRN Reason: Constipation Potassium Chloride (Pharmacy To Dose - Potassium Replacement) 1 dose .XX ASDIRECTED [facility] Senna/Docusate Sodium (Senna Plus) 1 tab PO BID PRN PRN Reason: Constipation Temazepam (Restoril) 15 mg PO BEDTIME PRN PRN Reason: Sleep Last Admin: 06/09/17 23:41 Dose: 15 mg Discontinued Medications Acetylcysteine 12,240 mg/ (Dextrose/Water) 161.2 mls @ 161 mls/hr IV ONETIME ONE Stop: 06/08/17 17:00 Last Admin: 06/08/17 21:44 Dose: Not Given Sodium Chloride (Normal Saline) 1,000 mls @ 125 mls/hr IV ASDIRECTED [facility] Last Admin: 06/09/17 03:36 Dose: 125 mls/hr Pantoprazole Sodium (Protonix Iv) 40 mg IVPUSH ONETIME ONE Stop: 06/08/17 17:33 Last Admin: 06/08/17 19:41 Dose: 40 mg Pantoprazole Sodium (Protonix Iv) 40 mg IVPUSH ONETIME ONE Stop: 06/08/17 20:01 Last Admin: 06/08/17 21:27 Dose: Not Given - Exam General: Reports: Alert, Oriented, Cooperative, No Acute Distress HEENT: Reports: Pupils Equal, Pupils Reactive, EOMI, Mucous Membr. Moist/[place], Other (blood shot eyes) Neck: Reports: Supple, Trachea Midline, No JVD, No Thyromegaly Lungs: Reports: Clear to Auscultation, Normal Respiratory Effort Cardiovascular: Reports: Regular Rate, Regular Rhythm GI/Abdominal Exam: Normal Bowel Sounds, Soft, Non-Tender, No Organomegaly, No Distention, No Abnormal Bruit, No Mass (Male) Exam: Deferred Rectal (Males) Exam: Deferred Back Exam: Reports: Normal Inspection, Full Range of Motion Extremities: Normal Inspection, Normal Range of Motion, Non-Tender, No Pedal Edema, Normal Capillary Refill Skin: Reports: Warm, Dry, Intact Neurological: Reports: No New Focal Deficit Psy/Mental Status: Reports: Alert, Normal Affect, Normal Mood
== END 2017-06-10 10:00 | disposition home or self-care (01) | DRG 280 ==
LOC: JD.ED 14:28 → JD.MS 17:42
PROVIDERS: ADMIT Internal Medicine; ATTEND Internal Medicine
DX: K70.10 Alcoholic hepatitis without ascites (principal); J45.909 Unspecified asthma, uncomplicated; F32.9 Major depressive disorder, single episode, unspecified; F17.200 Nicotine dependence, unspecified, uncomplicated; T39.1X5A Adverse effect of 4-Aminophenol derivatives, initial encounter; R53.81 Other malaise; R53.1 Weakness; R53.83 Other fatigue; S80.219A Abrasion, unspecified knee, initial encounter; W19.XXXA Unspecified fall, initial encounter; L98.9 Disorder of the skin and subcutaneous tissue, unspecified; Z91.018 Allergy to other foods
CPT/HCPCS: 36415; 76705; 76705-26; 80053; 80074; 80306; 81001; 82977; 83690; 83735; 85025; 85610; 86140; 99284; 99285-25; A9270-GY; C9113; G0480; J7040

== ENCOUNTER 2017-09-22 11:22 | Emergency (ER) | payer BC ==
[2017-09-22 11:30] VITALS: BP 118/77
--- NOTE | 2017-09-22 11:58 | EDM.PDOC ---
ED HPI GENERAL MEDICAL PROBLEM - General Chief Complaint: Lower Extremity Injury/Pain Stated Complaint: R FOOT SWOLLEN/PAINFUL Time Seen by Provider: 09/22/17 11:37 Source of Information: Reports: Patient History Limitations: Reports: No Limitations - History of Present Illness INITIAL COMMENTS - FREE TEXT/NARRATIVE: 21-year-old male presents for evaluation and treatment of swelling and redness to his right ankle. First appreciated the area about 2 days ago. He has some abrasions to the ankle which she reports started after the swelling and redness. He denies any injury to the ankle. No fevers, chills, nausea or vomiting. Is able to ambulate on his own volition. No numbness or tingling. Denies any chronic medical conditions such as diabetes. Has never had anything like this before. No primary care provider. Right Ankle Pain Score (Numeric/FACES): 3 - Related Data Allergies Allergy/AdvReac Type Severity Reaction Status Date / Time peaches Allergy Swelling Uncoded 09/22/17 11:30 Home Meds: Home Meds Doxycycline [Vibramycin] 100 mg PO BID #20 cap 09/22/17 [Rx] Past Medical History - Past Health History Medical/Surgical History: Denies Medical/Surgical History Respiratory History: Reports: Asthma Other Respiratory History: Takes PRN inhaler. Has not had it filled since arrival to [place]. Musculoskeletal History: Reports: None Psychiatric History: Reports: Depression - Infectious Disease History Infectious Disease History: Reports: Influenza - Past Surgical History Musculoskeletal Surgical History: Reports: Other (See Below) Social & Family History - Family History Family Medical History: Noncontributory Respiratory: Reports: Asthma Other Respiratory Family Hisory: Mother - Tobacco Use Smoking Status *Q: Current Every Day Smoker Years of Tobacco use: 5 Packs/Tins Daily: 0.5 - Caffeine Use Caffeine Use: Reports: None - Recreational Drug Use Recreational Drug Use: No Review of Systems - Review of Systems Review Of Systems: See Below Constitutional: Denies: Chills, Fever GI/Abdominal: Denies: Nausea, Vomiting Musculoskeletal: Reports: Joint Pain (right ankle) Skin: Reports: Erythema (right ankle), Wound (abrasions right ankle) ED EXAM, GENERAL - Physical Exam Exam: See Below Exam Limited By: No Limitations General Appearance: Alert, WD/WN, No Apparent Distress Respiratory/Chest: No Respiratory Distress, Lungs Clear, Normal Breath Sounds Cardiovascular: Normal Peripheral Pulses, Regular Rate, Rhythm, No Murmur Peripheral Pulses: 3+: Posterior Tibial (L), Posterior Tibial (R), Dorsalis Pedis (L), Dorsalis Pedis (R) Extremities: Normal Range of Motion, Normal Capillary Refill, Increased Warmth ( right ankle), Redness (right ankle medial aspect, not circumfrential, approximately 15cm area in diatmete) Neurological: Alert, Oriented, Normal Cognition Psychiatric: Normal Affect, Normal Mood Skin Exam: Warm, Dry, Normal Color, Wound/Incision (multiple abrasions about 2- 4 cm in length to the right medial ankle) Course - Vital Signs Last Recorded V/S: Last Vital Signs Temp 97.7 F 09/22/17 11:28 Pulse 69 09/22/17 11:28 Resp 15 09/22/17 11:28 BP 118/77 09/22/17 11:28 Pulse Ox 97 09/22/17 11:28 - Orders/Labs/Meds Meds: Medications Discontinued Medications Generic Name Dose Route Start Last Admin Trade Name Wilver PRN Reason Stop Dose Admin Ceftriaxone Sodium 1 gm/ 0 gm 09/22/17 12:00 09/22/17 12:10 Lidocaine HCl 2.1 ml IM 2.1 inj Q24H KLAUDIA Administration - Re-Assessments/Exams Free Text/Narrative Re-Assessment/Exam: 09/22/17 11:53 Will give a shot of rocephin here and start on doxycycline. Note given for work. Encouraged follow-up/ Discharge instructions as documented. Departure - Departure Time of Disposition: 11:58 Disposition: Home, Self-Care 01 Condition: Fair Clinical Impression: Cellulitis - Discharge Information *PRESCRIPTION DRUG MONITORING PROGRAM REVIEWED*: No *COPY OF PRESCRIPTION DRUG MONITORING REPORT IN PATIENT BRAYAN: No Prescriptions: Doxycycline [Vibramycin] 100 mg PO BID #20 cap Instructions: Cellulitis, Adult Referrals: PCP,None [Primary Care Provider] - Melinda Rice, [employer] [Nurse Practitioner] - Forms: ED Department Discharge Additional Instructions: Take the doxycycline 1 Twice a day for 10 days. This medication can cause photosensitivity. Recommend avoiding sunlight or if you are in the sun make sure you are wearing sunscreen . ,make sure you are drinking plenty of fluids. [id number] Tylenol or Motrin as needed for discomfort relief. Follow up with a primary care provider within one week for recheck of your symptoms. Recommend tiffanie Rice or Lucien Em at the [facility] [place] [phone] to schedule with her. Please return to the ER if your symptoms change or worsen.
[2017-09-22] MEDS ORDERED: cefTRIAXone 1 GM, Lidocaine 1% 2.1 ML IM SCH ×2 (12:00)
== END 2017-09-22 12:20 | disposition home or self-care (01) ==
LOC: JD.ED 11:22
DX: L03.115 Cellulitis of right lower limb (principal); J45.909 Unspecified asthma, uncomplicated; F32.9 Major depressive disorder, single episode, unspecified; F17.210 Nicotine dependence, cigarettes, uncomplicated; Z91.018 Allergy to other foods
CPT/HCPCS: 96372; 99283; J0696

== ENCOUNTER 2018-04-02 01:23 | Emergency (ER) | payer BC ==
[2018-04-02 01:32] VITALS: BP 131/75
--- NOTE | 2018-04-02 01:37 | EDM.PDOC ---
ED HPI GENERAL MEDICAL PROBLEM - General Chief Complaint: Upper Extremity Injury/Pain Stated Complaint: RIGHT THUMB INJURED Time Seen by Provider: 04/02/18 01:30 Source of Information: Reports: Patient History Limitations: Reports: No Limitations - History of Present Illness INITIAL COMMENTS - FREE TEXT/NARRATIVE: The patient presents with right thumb pain. He says today he slipped on some ice and he fell and hurt his right hand. He has edema and pain at the base of his right thumb and he cannot move his right thumb. He is right handed. He denies any other injury. Onset: Sudden Duration: Hour(s): Location: Reports: Upper Extremity, Right (Thumb and hand) Quality: Reports: Sharp Severity: Moderate Improves with: Reports: Immobilization Worsens with: Reports: Movement Context: Reports: Trauma (Slipped on the ice and fell) Associated Symptoms: Reports: No Other Symptoms Right Finger-Thumb Pain Score (Numeric/FACES): 8 - Related Data Allergies Allergy/AdvReac Type Severity Reaction Status Date / Time peaches Allergy Swelling Uncoded 04/02/18 01:30 Home Meds: Home Meds Ibuprofen 400 mg PO ONCALL PRN 04/02/18 [History] Past Medical History - Past Health History Medical/Surgical History: Denies Medical/Surgical History Respiratory History: Reports: Asthma Other Respiratory History: Takes PRN inhaler. Has not had it filled since arrival to [place]. Musculoskeletal History: Reports: None Psychiatric History: Reports: Depression - Infectious Disease History Infectious Disease History: Reports: Influenza - Past Surgical History Musculoskeletal Surgical History: Reports: Other (See Below) Social & Family History - Family History Family Medical History: Noncontributory Respiratory: Reports: Asthma Other Respiratory Family Hisory: Mother - Caffeine Use Caffeine Use: Reports: Coffee, Energy Drinks Review of Systems - Review of Systems Review Of Systems: See Below Constitutional: Reports: No Symptoms Eyes: Reports: No Symptoms Ears: Reports: No Symptoms Nose: Reports: No Symptoms Mouth/Throat: Reports: No Symptoms Respiratory: Reports: No Symptoms Cardiovascular: Reports: No Symptoms GI/Abdominal: Reports: No Symptoms Genitourinary: Reports: No Symptoms Musculoskeletal: Reports: Other (Right hand and thumb pain) ED EXAM, GENERAL - Physical Exam Exam: See Below Exam Limited By: No Limitations General Appearance: Alert, No Apparent Distress Ears: Normal External Exam Nose: Normal Inspection Head: Atraumatic, Normocephalic Neck: Normal Inspection Respiratory/Chest: No Respiratory Distress Extremities: Other (Edema and ecchymosis with pain upon palpation to the base of the thumb. Good sensation and capillary refill distally. He cannot move his thumb due to pain.) ED TRAUMA EXTREMITY PROCEDURES - Joint Reduction Site: Finger (R) Sedation: Digital Block Local Anesthesia - Lidocaine (Xylocaine): 1% Plain Local Anesthetic Volume: 5cc Pre-Procedure NV Status: Normal Post-Procedure NV Status: Normal Technique: Traction/Counter Traction Number of Attempts: 2 Post-Reduction Imaging: Acceptably Reduced Joint Reduction Complications: No Course - Vital Signs Last Recorded V/S: Last Vital Signs Temp 98.9 F 04/02/18 01:30 Pulse 102 H 04/02/18 01:30 Resp 18 04/02/18 01:30 BP 131/75 04/02/18 01:30 Pulse Ox 97 04/02/18 01:30 - Orders/Labs/Meds Orders: Active Orders 24 hr Category Date Time Status Fingers Thumb Rt F5 [CR] Stat Exams 04/02/18 02:24 Taken Hand Comp Min 3V Rt [CR] Stat Exams 04/02/18 01:33 Taken Meds: Medications Discontinued Medications Generic Name Dose Route Start Last Admin Trade Name Freq PRN Reason Stop Dose Admin Hydrocodone Bitart/Acetaminophen 2 tab 04/02/18 02:26 Juliaetta 325-5 Mg PO 04/02/18 02:27 ONETIME ONE Lidocaine HCl 10 ml 04/02/18 01:57 04/02/18 02:25 Xylocaine 1% INJECT 04/02/18 01:58 10 ml ONETIME ONE Administration - Re-Assessments/Exams Free Text/Narrative Re-Assessment/Exam: 04/02/18 02:40 His x-ray shows no fracture but it does look like he may have a dislocation at the 5th MCP joint. I did a digital block and attempted to reduce it. On repeat x-ray there may be some improvement but not much. I will splint him and follow up with Dr Gifford. Departure - Departure Time of Disposition: 14:45 Disposition: Home, Self-Care 01 Condition: Good Clinical Impression: Fall Qualifiers: Encounter type: initial encounter Qualified Code(s): W19.XXXA - Unspecified fall, initial encounter Sprain of right thumb Qualifiers: Encounter type: initial encounter Sprain of finger site: metacarpophalangeal joint Qualified Code(s): S63.641A - Sprain of metacarpophalangeal joint of right thumb, initial encounter Dislocation of right thumb Qualifiers: Encounter type: initial encounter Qualified Code(s): S63.104A - Unspecified dislocation of right thumb, initial encounter - Discharge Information *PRESCRIPTION DRUG MONITORING PROGRAM REVIEWED*: No *COPY OF PRESCRIPTION DRUG MONITORING REPORT IN PATIENT BRAYAN: No Referrals: PCP,None [Primary Care Provider] - Reji Gifford MD [Physician] - 1 Week Forms: ED Department Discharge Additional Instructions: Ice your thumb for 15 minute 3 times per day for 2 days. Try to elevate your thumb above your heart as much as you can for 2 days to reduce swelling. Try to keep the splint on for about a week. Follow up with Dr Gifford within a week. Please return if you are worse. Take motrin or tylenol for any pain. If that does not help try a hydrocodone for pain. - My Orders Last 24 Hours: My Active Orders 04/02/18 01:33 Hand Comp Min 3V Rt [CR] Stat 04/02/18 02:24 Fingers Thumb Rt F5 [CR] Stat - Assessment/Plan Last 24 Hours: My Active Orders 04/02/18 01:33 Hand Comp Min 3V Rt [CR] Stat 04/02/18 02:24 Fingers Thumb Rt F5 [CR] Stat
[2018-04-02] MEDS ORDERED: Lidocaine 1% 10 ML MDV INJECT ONE (01:57)
[2018-04-02] MEDS ORDERED: Acetaminophen/HYDROcodone 325-5 MG Tab PO ONE (02:26)
--- NOTE | 2018-04-02 06:28 | CR ---
Right hand: Four views of the right hand were obtained. Comparison: No previous hand exam. No fracture, dislocation or other bony abnormality is seen. Pressure: 1. No abnormality is identified on right hand exam. Diagnostic code #1
--- NOTE | 2018-04-02 08:59 | CR ---
Right thumb: Three views of the right thumb were obtained. Comparison: Previous right hand exam performed earlier on the same day Previous hand study shows the proximal phalanx appears to be slightly subluxed in relation to the metacarpal which was not mentioned on original report. This finding is similar on current study to prior exam raising the possibility of persistent subluxation due to collateral ligament damage. Impression: 1. Slight subluxation remains within the MCP joint of the thumb. Findings suggest collateral ligament damage. Diagnostic code #3
== END 2018-04-02 02:54 | disposition home or self-care (01) ==
LOC: JD.ED 01:23
DX: S63.104A Unspecified dislocation of right thumb, initial encounter (principal); S63.641A Sprain of metacarpophalangeal joint of right thumb, initial encounter; W19.XXXA Unspecified fall, initial encounter; Z91.018 Allergy to other foods
CPT/HCPCS: 26770; 73130; 73140; 99283; A9270; J2001; 26700; 29125

== ENCOUNTER 2019-05-29 04:19 | Emergency (ER) | payer BC, MEDICAID ==
[2019-05-29] MEDS ORDERED: EPINEPHrine 1 MG/ML SDV ONE (04:29)
[2019-05-29] MEDS ORDERED: EPINEPHrine 1 MG/ML SDV IM ONE (04:31)
[2019-05-29] MEDS ORDERED: Famotidine 20 MG/2 ML SDV IVPUSH ONE (04:32)
[2019-05-29] MEDS ORDERED: methylPREDNISolone Sodium Succinate 125 MG/2 ML SDV IVPUSH ONE (04:32)
[2019-05-29] MEDS ORDERED: diphenhydrAMINE 50 MG/ML SDV IVPUSH ONE (04:32)
--- NOTE | 2019-05-29 04:43 | EDM.PDOC ---
ED HPI GENERAL MEDICAL PROBLEM - General Chief Complaint: Respiratory Problem Stated Complaint: SOB/ALLERGIC REACTION Time Seen by Provider: 05/29/19 04:23 - History of Present Illness INITIAL COMMENTS - FREE TEXT/NARRATIVE: 23-year-old male presents emergency room with allergic reaction. Patient has known allergy to peaches but he does not know what he possibly could have got into this evening. About 20 minutes prior to arrival the patient experienced shortness of breath throat tightening and difficulty breathing. This improved partially by using an albuterol inhaler. Patient has a past medical history of asthma however he has been using his mom's inhalers. He has refills of his own but has not gone to get them. Along with the shortness of breath he has had itching of the skin. No nausea no vomiting no abdominal pain. No other symptoms at this time he still has some throat tightening but it is not as bad as it was shortly before arrival. Where the trigger however shortly before symptoms started he did drink some homemade fruit juice but they assured him it did not have any peaches in it. - Related Data Allergies Allergy/AdvReac Type Severity Reaction Status Date / Time peaches Allergy Swelling Uncoded 05/29/19 04:58 Home Meds: Home Meds Ibuprofen 400 mg PO ONCALL PRN 04/02/18 [History] Albuterol Sulfate [Albuterol Sulfate Hfa] 8.5 gm IH Q4H PRN #1 [id number] [Rx] EPINEPHrine [Epipen 2-Morales] 0.3 mg IJ ASDIRECTED #1 ml 05/29/19 [Rx] predniSONE 60 mg PO WITHBREAKFAST #9 tab 05/29/19 [Rx] Past Medical History - Past Health History Medical/Surgical History: Denies Medical/Surgical History Respiratory History: Reports: Asthma Other Respiratory History: Takes PRN inhaler. Has not had it filled since arrival to [place]. Musculoskeletal History: Reports: None Psychiatric History: Reports: Depression - Infectious Disease History Infectious Disease History: Reports: Influenza - Past Surgical History Musculoskeletal Surgical History: Reports: Other (See Below) Social & Family History - Family History Family Medical History: Noncontributory Respiratory: Reports: Asthma Other Respiratory Family Hisory: Mother - Caffeine Use Caffeine Use: Reports: Coffee, Energy Drinks ED ROS GENERAL - Review of Systems Review Of Systems: See Below Constitutional: Reports: No Symptoms HEENT: Reports: Throat Swelling Respiratory: Reports: Shortness of Breath, Wheezing. Denies: Cough, Sputum Cardiovascular: Reports: No Symptoms Endocrine: Reports: No Symptoms GI/Abdominal: Reports: No Symptoms : Reports: No Symptoms Musculoskeletal: Reports: No Symptoms Skin: Reports: Pruritis ED EXAM, GENERAL - Physical Exam Exam: See Below Exam Limited By: No Limitations General Appearance: Alert, No Apparent Distress Eye Exam: Bilateral Eye: Normal Inspection Ears: Normal External Exam, Normal Canal, Hearing Grossly Normal, Normal TMs Nose: Normal Inspection, Normal Mucosa, No Blood Throat/Mouth: Normal Inspection, Normal Lips, Normal Teeth, Normal Gums, Normal Oropharynx, Normal Voice, No Airway Compromise Head: Atraumatic, Normocephalic Neck: Normal Inspection, Supple, Non-Tender, Full Range of Motion. No: Lymphadenopathy (L), Lymphadenopathy (R) Respiratory/Chest: Wheezing (Few wheezes noted throughout). No: Decreased Breath Sounds, Crackles, Rales Cardiovascular: Regular Rate, Rhythm, No Edema, No Murmur GI/Abdominal: Normal Bowel Sounds, Soft, Non-Tender Skin Exam: Erythema (His skin is mild to moderately erythematous no apparent raised lesions at this time) Course - Vital Signs Last Recorded V/S: Last Vital Signs Temp 36.9 C 05/29/19 04:23 Pulse 107 H 05/29/19 04:23 Resp 22 H 05/29/19 04:23 BP 134/70 05/29/19 04:23 Pulse Ox 95 05/29/19 04:23 - Orders/Labs/Meds Meds: Medications Discontinued Medications Generic Name Dose Route Start Last Admin Trade Name Wilver PRN Reason Stop Dose Admin Diphenhydramine HCl 50 mg 05/29/19 04:32 05/29/19 04:41 Benadryl IVPUSH 05/29/19 04:33 50 mg ONETIME ONE Administration Epinephrine HCl 0.5 mg 05/29/19 04:31 05/29/19 04:30 Adrenalin IM 05/29/19 04:32 0.5 mg ONETIME ONE Administration Epinephrine HCl Confirm 05/29/19 04:29 05/29/19 05:21 Adrenalin Administered 05/29/19 04:30 Not Given Dose 1 mg .ROUTE .STK-MED ONE Famotidine 40 mg 05/29/19 04:32 05/29/19 04:46 Pepcid IVPUSH 05/29/19 04:33 40 mg ONETIME ONE Administration Methylprednisolone Sodium Succinate 125 mg 05/29/19 04:32 05/29/19 04:46 Solu-Medrol IVPUSH 05/29/19 04:33 125 mg ONETIME ONE Administration - Re-Assessments/Exams Free Text/Narrative Re-Assessment/Exam: 05/29/19 05:00 Patient was given 0.5 mg of epinephrine IM and shortly after this felt much better. This is followed up with Solu-Medrol 125 mg famotidine 40 mg and Benadryl 50 mg IV. Departure - Departure Time of Disposition: 06:05 Disposition: Home, Self-Care 01 Clinical Impression: Allergic reaction - Discharge Information Prescriptions: Albuterol Sulfate [Albuterol Sulfate Hfa] 8.5 gm IH Q4H PRN #1 [id number] PRN Reason: Wheezing EPINEPHrine [Epipen 2-Morales] 0.3 mg IJ ASDIRECTED #1 ml predniSONE 60 mg PO WITHBREAKFAST #9 tab Referrals: PCP,None [Primary Care Provider] - Forms: ED Department Discharge Additional Instructions: Return to the emergency room with any questions problems or worsening symptoms. You have been started on 3 prescription medications and to [id number] medications. The prescription medications are prednisone take 3 tablets every morning starting tomorrow morning for 3 days. The second 1 is the EpiPen use 1 only if severe shortness of breath or that sensation that your throat is closing off. Use the second 1 if needed if this is needed go to the emergency room that is closest immediately. You have also had your albuterol refilled 2 puffs every 4 hours as needed. Benadryl and famotidine is [id number]. Get some famotidine 20 mg this is the generic for Pepcid. Take 1 20 mg tablet twice daily for 7 days. The Benadryl, or diphenhydramine take 25 to 50 mg every 6 hours if needed. Sepsis Event Note - Focused Exam Vital Signs: Vital Signs Temp Pulse Resp BP Pulse Ox 05/29/19 04:23 36.9 C 107 H 22 H 134/70 95 Date Exam was Performed: 05/29/19 Time Exam was Performed: 06:05
[2019-05-29 04:58] VITALS: BP 134/70; PULSE 107
== END 2019-05-29 06:28 | disposition home or self-care (01) ==
LOC: JD.ED 04:19
DX: T78.40XA Allergy, unspecified, initial encounter (principal); Z91.018 Allergy to other foods; J45.909 Unspecified asthma, uncomplicated
CPT/HCPCS: 96372; 96374; 96375; 99284; J0171; J1200; J2930; J3490

== ENCOUNTER 2020-08-04 17:59 | Emergency (ER) | payer BC, MEDICAID ==
[2020-08-04] MEDS ORDERED: Sodium Chloride 0.9% 10 ML Syringe FLUSH PRN (18:03)
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
[2020-08-04] MEDS ORDERED: Lactated Ringers 1,000 ML IV SCH (18:15)
--- NOTE | 2020-08-04 18:54 | CT ---
CT chest Technique: Multiple axial sections through the chest were obtained. Intravenous contrast was utilized. Reconstructed coronal and sagittal images were obtained. Comparison: No prior chest imaging is available. Findings: Small amount of air is noted within the right upper extremity and within the right back. In the area of air there is a comminuted rib fracture involving the posterior 9th rib as well as a nondisplaced rib fracture involving the 10th rib. Minimal pneumothorax is noted in this area. Small hemothorax is also noted on the right side. There is focal parenchymal density seen within the posterior lung in this area compatible with probable pulmonary contusion as well as some additional air within this lesion. I see no focal radiopacities within the soft tissues. Lungs are otherwise clear. Mediastinum shows normal sized thoracic aorta. Pulmonary arteries show normal enhancement. No mediastinal adenopathy is seen. No pericardial thickening is seen. Visualized upper abdominal structures appear within normal limits. Impression: 1. Comminuted posterior right 9th rib fracture and nondisplaced posterior right 10th rib fracture. Small amount of hemothorax is noted. Very minimal pneumothorax is also seen. 2. Focal parenchymal density in this area is seen within the posterior lung compatible with pulmonary hematoma. There is air also seen within this lesion. 3. Small amount of subcutaneous air is noted within the posterior right chest wall and posterior upper extremity. 4. No other acute abnormality is appreciated. Diagnostic code #3
[2020-08-04 19:23] VITALS: BP 96/52; PULSE 90
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
--- NOTE | 2020-08-05 07:51 | CR ---
Chest: Portable view of the chest was obtained. Comparison: Chest CT study performed earlier on the same day, no prior chest x-ray. Continuing parenchymal density is noted within the right lung base similar to prior chest CT. No pneumothorax is seen on this exam. Left lung is clear. Heart size and mediastinum are normal. Scoliosis is noted within the spine. Impression: 1. Parenchymal density within the right lung base most likely representing pulmonary contusion. 2. Scoliosis with no other acute abnormality being seen. Diagnostic code #3
== END 2020-08-04 19:40 | disposition home or self-care (01) ==
LOC: JD.ED 17:59
DX: S22.42XA Multiple fractures of ribs, left side, initial encounter for closed fracture (principal); S21.232A Puncture wound without foreign body of left back wall of thorax without penetration into thoracic cavity, initial encounter; S27.1XXA Traumatic hemothorax, initial encounter; R60.0 Localized edema; Z91.048 Other nonmedicinal substance allergy status; W34.00XA Accidental discharge from unspecified firearms or gun, initial encounter
CPT/HCPCS: 36415; 71045; 71260; 80053; 80307; 83690; 85025; 93005; 99285; J7120; 93010; 99284

== ENCOUNTER 2021-07-08 18:11 | Emergency (ER) | payer BC, MEDICAID ==
[2021-07-08 18:29] VITALS: BP 110/61; PULSE 106
== END 2021-07-08 18:34 | disposition left against medical advice (07) ==
LOC: JD.ED 18:11
DX: R51.9 Headache, unspecified (principal); Z53.21 Procedure and treatment not carried out due to patient leaving prior to being seen by health care provider